=== PATIENT | female | born 2000 | race Caucasian/White ===

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

== ENCOUNTER 2022-04-28 09:50 | Emergency (ER) | payer OTHER ==
--- NOTE | 2022-04-28 09:52 | ERPHSYRPT ---
- History of Present Illness Time Seen by Provider: 04/28/22 09:52 Source: patient Exam Limitations: no limitations Physician History: This is a 22-year-old white female patient of Dr. Ahuja and web search evaluator Dr. Garcia and is 16 weeks and presents to the emergency department with sore throat, mild cough, headache and body aches. She has flulike symptoms. She has no known exposures to individuals with this similar symptoms or who have been diagnosed with viral infections. Patient does not have chest pain. She does not have shortness of breath. She does not have abdominal pain. She has had intermittent nausea and vomiting during the and this has continued but not worsened. She has no dysuria or hematuria. Timing/Duration: day(s) (A few days) Cough Quality/Degree: mild, dry cough Possible Cause: no prior episodes Modifying Factors: Improves With: coughing Associated Symptoms: cough, muscle aches, nasal congestion, sore throat, No fever, No chest pain/soreness, No shortness of breath Allergies/Adverse Reactions: amoxicillin Allergy (Mild, Verified 04/28/22 10:08) Swelling pt said she was told not to take anything that ends with -cillin Home Medications: Vits W-Ca,Fe,FA(<1Mg) [] 1 each PO DAILY 10/23/18 [History] Ondansetron [Ondansetron Odt] 1 tab PO Q6-8HPRN PRN 04/28/22 [History] Hx Tetanus, Diphtheria Vaccination/Date Given: (unk) Hx Influenza Vaccination/Date Given: No Hx Pneumococcal Vaccination/Date Given: No Travel Risk - International Travel Have you traveled outside of the country in past 3 weeks: No - Coronavirus Screening Are you exhibiting any of the following symptoms?: Yes Symptoms: Vomiting/Diarrhea, Headaches/Body Aches/Fatigue Close contact with a COVID-19 positive Pt in past 14-21 Days: No - Review of Systems Constitutional: No Symptoms Eyes: No Symptoms Ears, Nose, & Throat: Nose Congestion, Throat Pain Respiratory: Cough Cardiac: No Symptoms Abdominal/Gastrointestinal: Nausea, Vomiting, No Abdominal Pain, No Diarrhea, No Constipation, No Appetite Changes Genitourinary Symptoms: No Symptoms Musculoskeletal: Arthralgias, Myalgias Skin: No Symptoms Neurological: No Symptoms Psychological: No Symptoms Endocrine: No Symptoms Hematologic/Lymphatic: No Symptoms Immunological/Allergic: No Symptoms All Other Systems: Reviewed and Negative - Past Medical History Pertinent Past Medical History: No - Past Surgical History Past Surgical History: No - Social History Smoking Status: Never smoker Exposure to second hand smoke: No Drug Use: none Patient Lives Alone: No - Nursing Vital Signs Nursing Vital Signs: Initial Vital Signs Temperature 99.2 F 04/28/22 09:51 Pulse Rate 83 04/28/22 09:51 Respiratory Rate 17 04/28/22 09:51 Blood Pressure 135/84 04/28/22 09:51 O2 Sat by Pulse Oximetry 95 04/28/22 09:51 Pain Scale Pain Intensity 0 - Physical Exam General Appearance: no apparent distress, alert, anxiety Eye Exam: PERRL/EOMI, eyes nml inspection Ears, Nose, Throat Exam: normal ENT inspection, moist mucous membranes Neck Exam: normal inspection, non-tender, supple, full range of motion, No meningismus Respiratory Exam: normal breath sounds, lungs clear, airway intact, No chest tenderness, No respiratory distress Cardiovascular Exam: regular rate/rhythm, normal heart sounds, normal peripheral pulses Gastrointestinal/Abdomen Exam: soft, normal bowel sounds, other ( abdomen), No tenderness Rectal Exam: not done Back Exam: normal inspection, normal range of motion, CVA tenderness Extremity Exam: normal inspection, normal range of motion, pelvis stable Neurologic Exam: alert, oriented x 3, cooperative, reports developer II-XII nml as tested, nor mal mood/affect, nml cerebellar function, nml station & gait, sensation nml Skin Exam: normal color, warm, dry Lymphatic Exam: No adenopathy SpO2 Interpretation: normal O2 Delivery: Room Air - Course Nursing assessment & vital signs reviewed: Yes Ordered Tests: Active Orders 24 hr Category Date Time Status IV Insertion STAT Care 04/28/22 10:09 Active CBC W DIFF Stat Lab 04/28/22 10:22 Completed CMP Stat Lab 04/28/22 10:22 Completed CULTURE,URINE Stat Lab 04/28/22 10:25 Received Evans Screen Stat Lab 04/28/22 10:22 Completed UA W/RFX UR CULTURE Stat Lab 04/28/22 10:25 Completed Medication Summary Discontinued Medications Generic Name Dose Route Start Last Admin Trade Name Freq PRN Reason Stop Dose Admin Sodium Chloride 1,000 mls @ 999 mls/hr 04/28/22 10:09 04/28/22 11:34 Sodium Chloride 0.9% 1000 Ml IV 04/28/22 11:09 Infused .Q1H1M STA Infusion Sodium Chloride Confirm 04/28/22 10:31 Sodium Chloride 0.9% 1000 Ml Administered 04/28/22 10:32 Dose 1,000 mls @ ud .ROUTE .STK-MED ONE Ceftriaxone Sodium/Dextrose 1 g in 50 mls @ 100 mls/hr 04/28/22 10:58 04/28/22 11:43 Rocephin 1 Gm-D5w 50 Ml Bag IV 04/28/22 11:27 Infused STAT STA Infusion Ceftriaxone Sodium/Dextrose Confirm 04/28/22 11:10 Rocephin 1 Gm-D5w 50 Ml Bag Administered 04/28/22 11:11 Dose 1 g in 50 mls @ ud IV .STK-MED ONE Ondansetron HCl 4 mg 04/28/22 10:09 04/28/22 10:34 Ondansetron Hcl 4 Mg/2 Ml Vial IV 04/28/22 10:10 4 mg STAT ONE Administration Ondansetron HCl Confirm 04/28/22 10:31 Ondansetron Hcl 4 Mg/2 Ml Vial Administered 04/28/22 10:32 Dose 4 mg .ROUTE .STK-MED ONE Lab/Rad Data: Laboratory Result Diagrams 04/28/22 10:22 04/28/22 10:22 Laboratory Results 04/28/22 04/28/22 04/28/22 Range/Units 10:25 10:25 10:25 WBC (4.0-10.5) x10^3/uL RBC (4.1-5.4) x10^6/uL Hgb (12.0-16.0) g/dL Hct (35-47) % MCV (78-100) fL MCH (26-32) pg MCHC (32-36) g/dL RDW (11.5-14.0) % Plt Count (150-450) x10^3/uL MPV (7.5-11.0) fL Gran % (36.0-66.0) % Immature Gran % (Auto) (0.00-0.4) % Nucleat RBC Rel Count (0.00-0.1) % Eos # (Auto) (0-0.5) x10^3/uL Immature Gran # (Auto) (0.00-0.03) x10^3u/L Absolute Lymphs (auto) (1.0-4.6) x10^3/uL Absolute Monos (auto) (0.0-1.3) x10^3/uL Absolute Nucleated RBC (0.00-0.01) x10^3u/L Lymphocytes % (24.0-44.0) % Monocytes % (0.0-12.0) % Eosinophils % (0.00-5.0) % Basophils % (0.0-0.4) % Absolute Granulocytes (1.4-6.9) x10^3/uL Basophils # (0-0.4) x10^3/uL Sodium (137-145) mmol/L Potassium (3.5-5.1) mmol/L Chloride (98-107) mmol/L Carbon Dioxide (22-30) mmol/L Anion Gap (5-15) MEQ/L BUN (7-17) mg/dL Creatinine (0.52-1.04) mg/dL Estimated GFR ML/MIN Glucose (74-106) mg/dL Calcium (8.4-10.2) mg/dL Total Bilirubin (0.2-1.3) mg/dL AST (14-36) U/L ALT (0-35) U/L Alkaline Phosphatase (38-126) U/L Serum Total Protein (6.3-8.2) g/dL Albumin (3.5-5.0) g/dL Urine Color Yellow (Yellow) Urine Appearance Cloudy A (Clear) Urine pH 7.0 (4.6-8.0) Ur Specific [place] 1.025 (1.005-1.030) Urine Protein Trace A (Negative) Urine Glucose (UA) Negative (Negative) mg/dL Urine Ketones Trace A (Negative) Urine Blood Negative (Negative) Urine Nitrite Negative (Negative) Urine Bilirubin Negative (Negative) Urine Urobilinogen 1.0 A (0.2) mg/dL Ur Leukocyte Esterase Moderate A (Negative) U Hyaline Cast (Auto) 6-10 A (0-2) /LPF Urine Microscopic RBC 0-2 (0-5) /HPF Urine Microscopic WBC 11-20 A (0-5) /HPF Ur Epithelial Cells Moderate A (None Seen) /HPF Urine Bacteria Few A (None Seen) /HPF Urine Culture Reflexed YES (NO) Monoscreen (Negative) Influenza Type A Ag NEGATIVE (NEGATIVE) Influenza Type B Ag NEGATIVE (NEGATIVE) RSV (PCR) NEGATIVE (Negative) SARS-CoV-2 (PCR) NEGATIVE (NEGATIVE) Group A Strep Antibody NEGATIVE (NEGATIVE) 04/28/22 04/28/22 04/28/22 Range/Units 10:22 10:22 10:22 WBC 10.6 H (4.0-10.5) x10^3/uL RBC 4.08 L (4.1-5.4) x10^6/uL Hgb 12.9 (12.0-16.0) g/dL Hct 38.7 (35-47) % MCV 94.9 (78-100) fL MCH 31.6 (26-32) pg MCHC 33.3 (32-36) g/dL RDW 13.0 (11.5-14.0) % Plt Count 247 (150-450) x10^3/uL MPV 9.9 (7.5-11.0) fL Gran % 70.2 H (36.0-66.0) % Immature Gran % (Auto) 0.7 H (0.00-0.4) % Nucleat RBC Rel Count 0.0 (0.00-0.1) % Eos # (Auto) 0.25 (0-0.5) x10^3/uL Immature Gran # (Auto) 0.07 H (0.00-0.03) x10^3u/L Absolute Lymphs (auto) 2.25 (1.0-4.6) x10^3/uL Absolute Monos (auto) 0.52 (0.0-1.3) x10^3/uL Absolute Nucleated RBC 0.00 (0.00-0.01) x10^3u/L Lymphocytes % 21.3 L (24.0-44.0) % Monocytes % 4.9 (0.0-12.0) % Eosinophils % 2.4 (0.00-5.0) % Basophils % 0.5 (0.0-0.4) % Absolute Granulocytes 7.43 H (1.4-6.9) x10^3/uL Basophils # 0.05 (0-0.4) x10^3/uL Sodium 137 (137-145) mmol/L Potassium 4.0 (3.5-5.1) mmol/L Chloride 106 (98-107) mmol/L Carbon Dioxide 20 L (22-30) mmol/L Anion Gap 14.8 (5-15) MEQ/L BUN 7 (7-17) mg/dL Creatinine 0.43 L (0.52-1.04) mg/dL Estimated GFR > 60.0 ML/MIN Glucose 83 (74-106) mg/dL Calcium 9.1 (8.4-10.2) mg/dL Total Bilirubin 0.50 (0.2-1.3) mg/dL AST 23 (14-36) U/L ALT 15 (0-35) U/L Alkaline Phosphatase 78 (38-126) U/L Serum Total Protein 7.7 (6.3-8.2) g/dL Albumin 4.3 (3.5-5.0) g/dL Urine Color (Yellow) Urine Appearance (Clear) Urine pH (4.6-8.0) Ur Specific [place] (1.005-1.030) Urine Protein (Negative) Urine Glucose (UA) (Negative) mg/dL Urine Ketones (Negative) Urine Blood (Negative) Urine Nitrite (Negative) Urine Bilirubin (Negative) Urine Urobilinogen (0.2) mg/dL Ur Leukocyte Esterase (Negative) U Hyaline Cast (Auto) (0-2) /LPF Urine Microscopic RBC (0-5) /HPF Urine Microscopic WBC (0-5) /HPF Ur Epithelial Cells (None Seen) /HPF Urine Bacteria (None Seen) /HPF Urine Culture Reflexed (NO) Monoscreen NEGATIVE (Negative) Influenza Type A Ag (NEGATIVE) Influenza Type B Ag (NEGATIVE) RSV (PCR) (Negative) SARS-CoV-2 (PCR) (NEGATIVE) Group A Strep Antibody (NEGATIVE) - Progress Progress: improved Air Movement: good Progress Note: 04/28/22 11:44 This patient's medical issue is 1 of moderate complexity. The patient is pregn ant and is having vomiting symptoms as well as body aches and headache. The work-up was based on the above as well as history of present illness and physical findings on examination. The work-up includes placement IV line, infusion of normal saline solution, infusion of Zofran intravenously, obtain a urinalysis, performing a CBC, CMP as well as viral swabs. The work-up results were reviewed by me and discussed with the patient. The patient has a urinary tract infection. We will send a prescription of Keflex to her pharmacy. Patient tolerated Rocephin well. 04/28/22 11:49 Blood Culture(s) Obtained: No Antibiotics given: Yes Counseled pt/family regarding: lab results, diagnosis, need for follow-up Medical Desision Making - Discussion of managment Agreed on:: Treatment plan, need for follow-up - Diagnostic Testing Diagnostic test were ordered, analyzed, and reviewed by me: Yes - Risk of complications Low Risk: Low risk of morbidity from additional dx testing or treatment The pt has a mod risk of morbidity or mortality based on: Need for prescription drug management - Departure Departure Disposition: Home Clinical Impression: UTI in , Vomiting during Condition: Stable Critical Care Time: No Referrals: STACI AHUJA MD [Primary Care Provider] - Follow up/PCP as directed Additional Instructions: Drink plenty of clear liquids. Take your medication as prescribed. Follow-up with your web search evaluator and primary care provider for further evaluation management. Prescriptions: Cephalexin Mh 500 mg [Keflex 500 mg] 500 mg PO TID #21 cap
[2022-04-28] MEDS ORDERED: Zofran 4 MG/2 ML VIAL IV ONE (10:09)
[2022-04-28] MEDS ORDERED: Sodium Chloride 0.9% 1000 ML 1,000 ML IV STA (10:09)
[2022-04-28 10:29] LABS: Absolute Neutrophil Ct (ANC) 7.43 x10^3/uL (1.4-6.9); BASOPHIL % 0.5 % (0.0-0.4); Basophil (Absolute #) 0.05 x10^3/uL (0-0.4); Eosinophil % 2.4 % (0.00-5.0); Eosinophil (Absolute #) 0.25 x10^3/uL (0-0.5); Hematocrit 38.7 % (35-47); Hemoglobin 12.9 g/dL (12.0-16.0); IMMATURE GRAN # 0.07 x10^3u/L (0.00-0.03); IMMATURE GRAN % 0.7 % (0.00-0.4); Lymphocyte (Absolute #) 2.25 x10^3/uL (1.0-4.6); Lymphocytes % 21.3 % (24.0-44.0); Mean Cell Volume 94.9 fL (78-100); Mean Corpuscular Hemoglobin 31.6 pg (26-32); Mean Corpuscular Hgb Concent. 33.3 g/dL (32-36); Mean Platelet Volume 9.9 fL (7.5-11.0); Monocyte (Absolute #) 0.52 x10^3/uL (0.0-1.3); Monocytes % 4.9 % (0.0-12.0); Neutrophil % 70.2 % (36.0-66.0); Platelet Count 247 x10^3/uL (150-450); Red Blood Count 4.08 x10^6/uL (4.1-5.4); White Blood Count 10.6 x10^3/uL (4.0-10.5)
[2022-04-28] MEDS ORDERED: Sodium Chloride 0.9% 1000 ML 1,000 ML ONE (10:31)
[2022-04-28] MEDS ORDERED: Zofran 4 MG/2 ML VIAL ONE (10:31)
[2022-04-28 10:42] LABS: ALBUMIN 4.3 g/dL (3.5-5.0); ALKALINE PHOSPHATASE 78 U/L (38-126); ANION GAP 14.8 MEQ/L (5-15); BLOOD UREA NITROGEN 7 mg/dL (7-17); CHLORIDE 106 mmol/L (98-107); Calcium 9.1 mg/dL (8.4-10.2); Carbon Dioxide 20 mmol/L (22-30); Creatinine 1 0.43 mg/dL (0.52-1.04); EST GLOMERULAR FILTRATION RATE > 60.0 ML/MIN; Glucose 83 mg/dL (74-106); SGOT/AST 23 U/L (14-36); SGPT/ALT 15 U/L (0-35); SODIUM 137 mmol/L (137-145); Total Protein 7.7 g/dL (6.3-8.2)
[2022-04-28 10:45] LABS: Appearance Cloudy (Clear); Bacteria Few /HPF (None Seen); Bilirubin Negative (Negative); Blood Negative (Negative); Epithelial Cells Moderate /HPF (None Seen); Glucose, Urine Negative (Negative); Ketones Trace (Negative); Leukocyte Esterase Moderate (Negative); Nitrite Negative (Negative); Protein,Urine Dip Trace (Negative); RBC 0-2 /HPF (0-5); Specific Gravity 1.025 (1.005-1.030)
[2022-04-28 10:57] LABS: ADD URINE CULTURE? YES (NO)
[2022-04-28] MEDS ORDERED: ROCEPHIN 1 Gm-D5w 50 ml Bag** 1 G/50 ML IVPB IV STA (10:58)
[2022-04-28] MEDS ORDERED: ROCEPHIN 1 Gm-D5w 50 ml Bag** 1 G/50 ML IVPB IV ONE (11:10)
[2022-04-28 11:22] LABS: INFLUENZA A NEGATIVE (NEGATIVE); INFLUENZA B NEGATIVE (NEGATIVE); RESPIRATORY SYNCTIAL VIRUS NEGATIVE (Negative); SARS-CoV-2 Xpert Express NEGATIVE (NEGATIVE)
[2022-04-28 12:26] VITALS: BP 111/77; PULSE 84; O2SAT 98
== END 2022-04-28 12:26 | disposition home or self-care (01) ==
LOC: ED 09:50
DX: O23.42 Unspecified infection of urinary tract in pregnancy, second trimester (principal); N39.0 Urinary tract infection, site not specified; Z3A.16 16 weeks gestation of pregnancy; O21.9 Vomiting of pregnancy, unspecified; J02.9 Acute pharyngitis, unspecified; R51.9 Headache, unspecified; M79.10 Myalgia, unspecified site
CPT/HCPCS: 0241U; 36000; 36415; 80053; 81001; 85025; 86308; 87086; 87651; 96365; 96374; 99284; J0696; J2405

== ENCOUNTER 2023-08-28 11:05 | Observation (INO) | payer OTHER, MEDICAID ==
--- NOTE | 2023-08-28 11:23 | ERPHSYRPT ---
- History of Present Illness Time Seen by Provider: 08/28/23 11:23 Source: patient Exam Limitations: no limitations Patient Subjective Stated Complaint: pt here for cough, fever, vomiting and chest pain for a few days, was seen at clinic and is on meds for ear infection Triage Nursing Assessment: pt alert, walked in holding chest, resp easy, occ dry cough, skin w/d/p, no edema noted,moves all ext well, Physician History: The patient, with a five-day history of fever, nausea, and cough, presents to the emergency department. They initially sought care at a [facility] clinic on the third day of illness due to ear discomfort, where they were diagnosed with a viral infection and prescribed antiviral medication. However, they have been unable to tolerate the medication due to severe stomach pain and vomiting after ingestion. Despite rotating Tylenol and ibuprofen every two hours, they have been unable to reduce their fever below 100.5F. The patient's symptoms began with a severe migraine on Thursday night, followed by the onset of fever and nausea the next morning. They also report new-onset chest pain when breathing, which they attribute to congestion and coughing. They have also been experiencing shortness of breath. Timing/Duration: day(s) (5) Cough Quality/Degree: moderate, productive cough Possible Cause: no prior episodes Modifying Factors: Worsens With: activity, coughing, deep breath Associated Symptoms: fever, chills, chest pain/soreness, cough, earache, headache, muscle aches, nasal congestion, shortness of breath, wheezing Allergies/Adverse Reactions: amoxicillin Allergy (Mild, Verified 08/28/23 15:38) Swelling pt said she was told not to take anything that ends with -cillin Hx Tetanus, Diphtheria Vaccination/Date Given: (unk) Hx Influenza Vaccination/Date Given: No Hx Pneumococcal Vaccination/Date Given: No Immunizations Up to Date: Yes Travel Risk - International Travel Have you traveled outside of the country in past 3 weeks: No - Emerging Infectious Disease Are you exhibiting symptoms associated with any current EIDs: Yes Symptoms: Fever, Vomitting - Review of Systems All Other Systems: Reviewed and Negative - Past Medical History Pertinent Past Medical History: No - Past Surgical History Past Surgical History: No - Female History Hx Last Menstrual Period: 2 weeks ago Hx Now: No - Social History Smoking Status: Never smoker Exposure to second hand smoke: No Drug Use: none Patient Lives Alone: No - Social Determinants of Health Will the patient participate in the screening: Declined to provide - Nursing Vital Signs Nursing Vital Signs: Initial Vital Signs Respiratory Rate 22 08/28/23 11:14 O2 Sat by Pulse Oximetry 98 08/28/23 11:14 Pain Scale Pain Intensity 4 - Physical Exam General Appearance: no apparent distress, obese Eye Exam: eyes nml inspection Ears, Nose, Throat Exam: TMs normal, moist mucous membranes, pharyngeal erythema, No tonsillar exudate Neck Exam: normal inspection, non-tender, supple, full range of motion, lymphadenopathy Respiratory Exam: airway intact, diminished breath sounds, rhonchi, No chest tenderness, No respiratory distress, No accessory muscle use Cardiovascular Exam: normal heart sounds, tachycardia, capillary refill <2 sec, No friction rub, No edema Gastrointestinal/Abdomen Exam: soft, No tenderness, No distention, No mass, No guarding, No rebound Neurologic Exam: alert, oriented x 3, cooperative Skin Exam: warm, dry, pale SpO2 Interpretation: normal SpO2: 98 O2 Delivery: Room Air - Course Nursing assessment & vital signs reviewed: Yes EKG Interpreted by Me: RATE ([id number]), NORMAL AXIS, NORMAL INTERVALS, NORMAL QRS, NORMAL ST-T - CT Exams Chest CT Interpretation: Tele-radiologist Report, No PE, Pneumonia (bilateral) Ordered Tests: Medication Summary Discontinued Medications Generic Name Dose Route Start Last Admin Trade Name Freq PRN Reason Stop Dose Admin Acetaminophen 650 mg 08/28/23 16:02 Acetaminophen 325 Mg Tablet PO 09/27/23 16:01 Q6H PRN PRN PAIN AND/OR FEVER Hydrocodone Bitart/Acetaminophen Confirm 08/28/23 11:40 Hydrocodone/Acetaminophen 5 Ml Udcup Administered 08/28/23 11:41 Dose 5 ml .ROUTE .STK-MED ONE Albuterol/Ipratropium 3 ml 08/28/23 11:29 08/28/23 12:19 Ipratropium/Albuterol Sulfate 3 Ml Ampul.Neb IH 08/28/23 11:30 3 ml STAT ONE Administration Albuterol/Ipratropium Confirm 08/28/23 12:15 Ipratropium/Albuterol Sulfate 3 Ml Ampul.Neb Administered 08/28/23 12:16 Dose 3 ml IH .STK-MED ONE Albuterol/Ipratropium 3 ml 08/28/23 19:00 08/29/23 07:45 Ipratropium/Albuterol Sulfate 3 Ml Ampul.Neb IH 09/27/23 18:59 Not Given Q6HRT MARY Benzonatate 100 mg 08/28/23 16:29 08/29/23 07:22 Benzonatate 100 Mg Capsule PO 09/27/23 16:28 100 mg TID PRN PRN Administration COUGH Chlorphenir/Hydrocodone Polistirex 5 ml 08/28/23 11:35 08/28/23 12:16 Hydrocodone/Chlorphen P-Stirex 1 Ml Bonnie.Er.12h PO 08/28/23 11:36 5 ml ONCE ONE Administration Methylprednisolone Sodium 0 mg 08/28/23 11:29 08/28/23 11:53 Succinate 125 mg/ Sterile IV 08/28/23 11:30 125 mg Water 2 ml STAT ONE Administration Enoxaparin Sodium 40 mg 08/29/23 10:00 08/29/23 08:40 Enoxaparin Sodium 40 Mg/0.4 Ml Syringe SQ 09/28/23 09:59 Not Given DAILY MARY Sodium Chloride 1,000 mls @ 999 mls/hr 08/28/23 11:29 08/28/23 12:53 Sodium Chloride 0.9% 1000 Ml IV 08/28/23 12:29 Infused .Q1H1M STA Infusion Azithromycin 500 mg in 250 mls @ 250 mls/hr 08/28/23 11:29 08/28/23 13:19 Zithromax 500 Mg/ 250 Ml Nacl Premix IV 08/28/23 12:28 Infused STAT STA Infusion Ceftriaxone Sodium 2 gm in 100 mls @ 200 mls/hr 08/28/23 11:29 08/28/23 12:23 Rocephin 2 Gm/100 Ml Nacl IV 08/28/23 11:58 Infused STAT ONE Infusion Sodium Chloride Confirm 08/28/23 11:40 Sodium Chloride 0.9% 1000 Ml Administered 08/28/23 11:41 Dose 1,000 mls @ ud .ROUTE .STK-MED ONE Ceftriaxone Sodium Confirm 08/28/23 11:41 Rocephin 2 Gm/100 Ml Nacl Administered 08/28/23 11:42 Dose 2 gm in 100 mls @ ud IV .STK-MED ONE Ceftriaxone Sodium Confirm 08/28/23 11:46 Rocephin 2 Gm/100 Ml Nacl Administered 08/28/23 11:47 Dose 2 gm in 100 mls @ ud IV .STK-MED ONE Azithromycin Confirm 08/28/23 12:12 Zithromax 500 Mg/ 250 Ml Nacl Premix Administered 08/28/23 12:13 Dose 500 mg in 250 mls @ ud IV .STK-MED ONE Sodium Chloride 1,000 mls @ 999 mls/hr 08/28/23 13:45 08/28/23 14:15 Sodium Chloride 0.9% 1000 Ml IV 08/28/23 14:45 999 mls/hr .Q1H1M STA Administration Sodium Chloride Confirm 08/28/23 14:13 Sodium Chloride 0.9% 1000 Ml Administered 08/28/23 14:14 Dose 1,000 mls @ ud .ROUTE .STK-MED ONE Ceftriaxone Sodium 1 gm in 100 mls @ 200 mls/hr 08/29/23 10:00 08/29/23 08:37 Rocephin 1 Gm / 100 Ml Nacl IV 09/28/23 09:59 200 mls/hr DAILY MARY Administration Azithromycin 500 mg in 250 mls @ 250 mls/hr 08/29/23 10:00 08/29/23 09:16 Zithromax 500 Mg/ 250 Ml Nacl Premix IV 09/28/23 09:59 250 mls/hr Q24H10 MARY Administration Sodium Chloride 1,000 mls @ 100 mls/hr 08/28/23 16:15 08/29/23 03:43 Sodium Chloride 0.9% 1000 Ml IV 09/27/23 16:14 100 mls/hr .Q10H MARY Administration Sodium Chloride 1,000 mls @ 999 mls/hr 08/28/23 16:06 08/28/23 16:41 Sodium Chloride 0.9% 1000 Ml IV 08/28/23 17:06 999 mls/hr .Q1H1M STA Administration Methylprednisolone Sodium Succinate Confirm 08/28/23 11:40 Methylprednis Sod Succ 125 Mg/2 Ml Vial Administered 08/28/23 11:41 Dose 125 mg .ROUTE .STK-MED ONE Ondansetron HCl 4 mg 08/28/23 12:31 08/28/23 12:34 Ondansetron Hcl 4 Mg/2 Ml Vial IV 08/28/23 12:32 4 mg STAT ONE Administration Ondansetron HCl Confirm 08/28/23 12:32 Ondansetron Hcl 4 Mg/2 Ml Vial Administered 08/28/23 12:33 Dose 4 mg .ROUTE .STK-MED ONE Prochlorperazine Edisylate 10 mg 08/28/23 16:05 Prochlorperazine Edisylate 10 Mg/2 Ml Vial IV 09/27/23 16:04 Q6H PRN PRN NAUSEA/VOMITING Sterile Water Confirm 08/28/23 11:40 Water For Injection,Sterile 10 Ml Vial Administered 08/28/23 11:41 Dose 10 ml IJ .StraighterLine-[employer]-IT ONE Lab/Rad Data: Laboratory Result Diagrams 08/28/23 11:29 08/28/23 11:08 Laboratory Results 08/28/23 08/28/23 08/28/23 Range/Units 15:02 12:35 12:35 WBC (3.98-10.04) x10^3/uL RBC (3.93-5.22) x10^6/uL Hgb (11.2-15.7) g/dL Hct (34.1-44.9) % MCV (79.4-94.8) fL MCH (25.6-32.2) pg MCHC (32.2-35.5) g/dL RDW (11.7-14.4) % Plt Count (182-369) x10^3/uL MPV (9.4-12.3) fL Gran % (34.0-71.1) % Immature Gran % (Auto) (0.001-0.429) % Nucleat RBC Rel Count (0.00-0.2) % Eos # (Auto) (0.04-0.36) x10^3/uL Immature Gran # (Auto) (0.001-0.031) x10^3u/L Absolute Lymphs (auto) (1.18-3.74) x10^3/uL Absolute Monos (auto) (0.24-0.86) x10^3/uL Absolute Nucleated RBC (0.00-0.012) x10^3u/L Lymphocytes % (19.3-51.7) % Monocytes % (4.7-12.5) % Eosinophils % (0.7-5.8) % Basophils % (0.1-1.2) % Absolute Granulocytes (1.56-6.13) x10^3/uL Basophils # (0.01-0.08) x10^3/uL D-Dimer (0.0-0.50) mg/L pO2/FiO2 Ratio 21.0 % VBG pH 7.54 H (7.32-7.42) VBG pCO2 at Pat Temp 30 L (42-55) mm/Hg VBG pO2 at Pat Temp 27 (25-40) mm/Hg VBG HCO3 25.7 (22-28) meq/L VBG O2 Sat (Mckenzie) 54.3 L (95-100) VBG Base Excess 3.9 H (-2.0-2.0) VBG Hemoglobin 14.8 VBG Carboxyhemoglobin 4.3 (0.0-6.9) % T HGB POC Potassium 4.3 (3.5-5.1) Sodium (135-145) mmol/L Potassium (3.5-5.1) mmol/L Chloride (98-107) mmol/L Carbon Dioxide (22-30) mmol/L Anion Gap (5-15) MEQ/L BUN (7-17) mg/dL Creatinine (0.52-1.04) mg/dL Estimated GFR ML/MIN Glucose (74-106) mg/dL Lactic Acid 1.8 (0.4-2.0) Calcium (8.4-10.2) mg/dL Magnesium (1.6-2.3) mg/dL Total Bilirubin (0.2-1.3) mg/dL AST (14-36) U/L ALT (0-35) U/L Alkaline Phosphatase (38-126) U/L Serum Total Protein (6.3-8.2) g/dL Albumin (3.5-5.0) g/dL Serum HCG, Qual (NEGATIVE) Urine Color Yellow (Yellow) Urine Appearance Clear (Clear) Urine pH 7.5 (4.6-8.0) Ur Specific [place] 1.025 (1.005-1.030) Urine Protein 30 (Negative) Urine Glucose (UA) Negative (Negative) mg/dL Urine Ketones 40 A (Negative) Urine Blood Negative (Negative) Urine Nitrite Negative (Negative) Urine Bilirubin Negative (Negative) Urine Urobilinogen 1.0 A (0.2) mg/dL Ur Leukocyte Esterase Small A (Negative) U Hyaline Cast (Auto) NONE SEEN (0-2) /LPF Urine Microscopic RBC 3-5 (0-5) /HPF Urine Microscopic WBC 6-10 A (0-5) /HPF Ur Epithelial Cells Moderate A (None Seen) /HPF Urine Bacteria None Seen (None Seen) /HPF Urine Culture Reflexed YES (NO) Influenza Type A Ag (NEGATIVE) Influenza Type B Ag (NEGATIVE) RSV (PCR) (NEGATIVE) SARS-CoV-2 (PCR) (NEGATIVE) 08/28/23 08/28/23 08/28/23 Range/Units 11:45 11:29 11:08 WBC 7.4 (3.98-10.04) x10^3/uL RBC 4.64 (3.93-5.22) x10^6/uL Hgb 14.1 (11.2-15.7) g/dL Hct 42.0 (34.1-44.9) % MCV 90.5 (79.4-94.8) fL MCH 30.4 (25.6-32.2) pg MCHC 33.6 (32.2-35.5) g/dL RDW 12.6 (11.7-14.4) % Plt Count 224 (182-369) x10^3/uL MPV 10.0 (9.4-12.3) fL Gran % 69.5 (34.0-71.1) % Immature Gran % (Auto) 0.3 (0.001-0.429) % Nucleat RBC Rel Count 0.0 (0.00-0.2) % Eos # (Auto) 0.11 (0.04-0.36) x10^3/uL Immature Gran # (Auto) 0.02 (0.001-0.031) x10^3u/L Absolute Lymphs (auto) 1.55 (1.18-3.74) x10^3/uL Absolute Monos (auto) 0.54 (0.24-0.86) x10^3/uL Absolute Nucleated RBC 0.00 (0.00-0.012) x10^3u/L Lymphocytes % 21.0 (19.3-51.7) % Monocytes % 7.3 (4.7-12.5) % Eosinophils % 1.5 (0.7-5.8) % Basophils % 0.4 (0.1-1.2) % Absolute Granulocytes 5.13 (1.56-6.13) x10^3/uL Basophils # 0.03 (0.01-0.08) x10^3/uL D-Dimer (0.0-0.50) mg/L pO2/FiO2 Ratio % VBG pH (7.32-7.42) VBG pCO2 at Pat Temp (42-55) mm/Hg VBG pO2 at Pat Temp (25-40) mm/Hg VBG HCO3 (22-28) meq/L VBG O2 Sat (Mckenzie) (95-100) VBG Base Excess (-2.0-2.0) VBG Hemoglobin VBG Carboxyhemoglobin (0.0-6.9) % T HGB POC Potassium (3.5-5.1) Sodium (135-145) mmol/L Potassium (3.5-5.1) mmol/L Chloride (98-107) mmol/L Carbon Dioxide (22-30) mmol/L Anion Gap (5-15) MEQ/L BUN (7-17) mg/dL Creatinine (0.52-1.04) mg/dL Estimated GFR ML/MIN Glucose (74-106) mg/dL Lactic Acid (0.4-2.0) Calcium (8.4-10.2) mg/dL Magnesium (1.6-2.3) mg/dL Total Bilirubin (0.2-1.3) mg/dL AST (14-36) U/L ALT (0-35) U/L Alkaline Phosphatase (38-126) U/L Serum Total Protein (6.3-8.2) g/dL Albumin (3.5-5.0) g/dL Serum HCG, Qual NEGATIVE (NEGATIVE) Urine Color (Yellow) Urine Appearance (Clear) Urine pH (4.6-8.0) Ur Specific [place] (1.005-1.030) Urine Protein (Negative) Urine Glucose (UA) (Negative) mg/dL Urine Ketones (Negative) Urine Blood (Negative) Urine Nitrite (Negative) Urine Bilirubin (Negative) Urine Urobilinogen (0.2) mg/dL Ur Leukocyte Esterase (Negative) U Hyaline Cast (Auto) (0-2) /LPF Urine Microscopic RBC (0-5) /HPF Urine Microscopic WBC (0-5) /HPF Ur Epithelial Cells (None Seen) /HPF Urine Bacteria (None Seen) /HPF Urine Culture Reflexed (NO) Influenza Type A Ag NEGATIVE (NEGATIVE) Influenza Type B Ag NEGATIVE (NEGATIVE) RSV (PCR) NEGATIVE (NEGATIVE) SARS-CoV-2 (PCR) NEGATIVE (NEGATIVE) 08/28/23 08/28/23 Range/Units 11:08 11:08 WBC (3.98-10.04) x10^3/uL RBC (3.93-5.22) x10^6/uL Hgb (11.2-15.7) g/dL Hct (34.1-44.9) % MCV (79.4-94.8) fL MCH (25.6-32.2) pg MCHC (32.2-35.5) g/dL RDW (11.7-14.4) % Plt Count (182-369) x10^3/uL MPV (9.4-12.3) fL Gran % (34.0-71.1) % Immature Gran % (Auto) (0.001-0.429) % Nucleat RBC Rel Count (0.00-0.2) % Eos # (Auto) (0.04-0.36) x10^3/uL Immature Gran # (Auto) (0.001-0.031) x10^3u/L Absolute Lymphs (auto) (1.18-3.74) x10^3/uL Absolute Monos (auto) (0.24-0.86) x10^3/uL Absolute Nucleated RBC (0.00-0.012) x10^3u/L Lymphocytes % (19.3-51.7) % Monocytes % (4.7-12.5) % Eosinophils % (0.7-5.8) % Basophils % (0.1-1.2) % Absolute Granulocytes (1.56-6.13) x10^3/uL Basophils # (0.01-0.08) x10^3/uL D-Dimer 0.83 H* (0.0-0.50) mg/L pO2/FiO2 Ratio % VBG pH (7.32-7.42) VBG pCO2 at Pat Temp (42-55) mm/Hg VBG pO2 at Pat Temp (25-40) mm/Hg VBG HCO3 (22-28) meq/L VBG O2 Sat (Mckenzie) (95-100) VBG Base Excess (-2.0-2.0) VBG Hemoglobin VBG Carboxyhemoglobin (0.0-6.9) % T HGB POC Potassium (3.5-5.1) Sodium 140 (135-145) mmol/L Potassium 3.9 (3.5-5.1) mmol/L Chloride 104 (98-107) mmol/L Carbon Dioxide 22 (22-30) mmol/L Anion Gap 17.5 H (5-15) MEQ/L BUN 12 (7-17) mg/dL Creatinine 0.90 (0.52-1.04) mg/dL Estimated GFR 91.6 ML/MIN Glucose 97 (74-106) mg/dL Lactic Acid (0.4-2.0) Calcium 9.7 (8.4-10.2) mg/dL Magnesium 2.1 (1.6-2.3) mg/dL Total Bilirubin 0.70 (0.2-1.3) mg/dL AST 28 (14-36) U/L ALT 20 (0-35) U/L Alkaline Phosphatase 66 (38-126) U/L Serum Total Protein 8.2 (6.3-8.2) g/dL Albumin 4.6 (3.5-5.0) g/dL Serum HCG, Qual (NEGATIVE) Urine Color (Yellow) Urine Appearance (Clear) Urine pH (4.6-8.0) Ur Specific [place] (1.005-1.030) Urine Protein (Negative) Urine Glucose (UA) (Negative) mg/dL Urine Ketones (Negative) Urine Blood (Negative) Urine Nitrite (Negative) Urine Bilirubin (Negative) Urine Urobilinogen (0.2) mg/dL Ur Leukocyte Esterase (Negative) U Hyaline Cast (Auto) (0-2) /LPF Urine Microscopic RBC (0-5) /HPF Urine Microscopic WBC (0-5) /HPF Ur Epithelial Cells (None Seen) /HPF Urine Bacteria (None Seen) /HPF Urine Culture Reflexed (NO) Influenza Type A Ag (NEGATIVE) Influenza Type B Ag (NEGATIVE) RSV (PCR) (NEGATIVE) SARS-CoV-2 (PCR) (NEGATIVE) - Progress Progress: improved Air Movement: fair Progress Note: Acute Respiratory Illness: Fever, nausea, cough, and chest pain for 5 days. No improvement with antiviral medication. Chest pain likely due to coughing. Shortness of breath reported. Tachycardia present. -Order chest x-ray and lab work. -Administer IV antibiotics. -Administer steroids. -Start breathing treatment. -Change oral antibiotic prescription. -Monitor heart rate. Gastrointestinal Distress: Vomiting and abdominal pain after taking antiviral medication. -Discontinue current antiviral medication. -Administer IV medication to control symptoms. Cough: Persistent cough without any medication provided previously. -Provide cough suppressant medication. 08/28/23 14:46 Shira accepts for admission at 1446. Blood Culture(s) Obtained: Yes Antibiotics given: Yes Counseled pt/family regarding: lab results, diagnosis, need for follow-up, rad results Medical Desision Making - Discussion of managment Care discussed with:: hospitalist Reviewed:: Test results Agreed on:: Treatment plan, place in obs Will see patient: in hospital - Diagnostic Testing Diagnostic test were ordered, analyzed, and reviewed by me: Yes Radiological Interpretation: Interpreted by me, Reviewed by me, Teleradiologist Report - Risk of complications The pt has a mod risk of morbidity or mortality based on: Need for prescription drug management The pt has a high risk of morbidity or mortality based on: Decision regarding hospitilization or escalation of hosp level of care - Departure Departure Disposition: Observation Clinical Impression: Pneumonia, Dehydration Condition: Stable Critical Care Time: No
[2023-08-28] MEDS ORDERED: HYDROCODONE-ACETAMIN 2.5-108/5 ML SOLUTION ONE (11:40)
[2023-08-28] MEDS ORDERED: Sodium Chloride 0.9% 1000 ML 1,000 ML ONE ×2 (11:40→14:13)
[2023-08-28] MEDS ORDERED: Sterile H2O 10 ml IJ ONE (11:40)
[2023-08-28] MEDS ORDERED: solu-MEDROL ONE (11:40)
[2023-08-28] MEDS ORDERED: ROCEPHIN 2 GM/100 ML NACL 2 GM/100 ML IVPB IV ONE ×2 (11:41→11:46)
[2023-08-28] MEDS: Sodium Chloride 0.9% 1000 ML 1,000 ML IV STA ×3 (11:52→16:41)
[2023-08-28] MEDS: solu-MEDROL 125 MG, Sterile H2O 10 ml 2 ML IV ONE (11:53)
[2023-08-28] MEDS: ROCEPHIN 2 GM/100 ML NACL 2 GM/100 ML IVPB IV ONE (11:53)
[2023-08-28 11:54] LABS: Absolute Neutrophil Ct (ANC) 5.13 x10^3/uL (1.56-6.13); BASOPHIL % 0.4 % (0.1-1.2); Basophil (Absolute #) 0.03 x10^3/uL (0.01-0.08); Eosinophil % 1.5 % (0.7-5.8); Eosinophil (Absolute #) 0.11 x10^3/uL (0.04-0.36); Hemoglobin 14.1 g/dL (11.2-15.7); IMMATURE GRAN # 0.02 x10^3u/L (0.001-0.031); IMMATURE GRAN % 0.3 % (0.001-0.429); Lymphocyte (Absolute #) 1.55 x10^3/uL (1.18-3.74); Mean Cell Volume 90.5 fL (79.4-94.8); Mean Corpuscular Hemoglobin 30.4 pg (25.6-32.2); Mean Corpuscular Hgb Concent. 33.6 g/dL (32.2-35.5); Monocyte (Absolute #) 0.54 x10^3/uL (0.24-0.86); Monocytes % 7.3 % (4.7-12.5); Neutrophil % 69.5 % (34.0-71.1); Platelet Count 224 x10^3/uL (182-369); Red Blood Count 4.64 x10^6/uL (3.93-5.22); Red Cell Distribution Width 12.6 % (11.7-14.4); White Blood Count 7.4 x10^3/uL (3.98-10.04)
[2023-08-28 12:07] LABS: ALBUMIN 4.6 g/dL (3.5-5.0); ANION GAP 17.5 MEQ/L (5-15); BILIRUBIN,TOTAL 0.7 mg/dL (0.2-1.3); Calcium 9.7 mg/dL (8.4-10.2); Creatinine 1 0.9 mg/dL (0.52-1.04); EST GLOMERULAR FILTRATION RATE 91.6 ML/MIN; MAGNESIUM 2.1 mg/dL (1.6-2.3); Potassium 3.9 mmol/L (3.5-5.1); Total Protein 8.2 g/dL (6.3-8.2)
[2023-08-28 12:09] LABS: HCG SERUM TEST NEGATIVE (NEGATIVE)
[2023-08-28] MEDS ORDERED: Zithromax 500 MG/ 250 ML NaCl Premix 500 MG/250 ML IVPB IV ONE (12:12)
[2023-08-28] MEDS ORDERED: DUONEB 0.5-3 MG/3 ml Neb IH ONE (12:15)
[2023-08-28] MEDS: HYDROCODONE-CHLORPHEN ER SUSP PO ONE (12:16)
[2023-08-28] MEDS: DUONEB 0.5-3 MG/3 ml Neb IH ONE (12:19)
[2023-08-28] MEDS: Zithromax 500 MG/ 250 ML NaCl Premix 500 MG/250 ML IVPB IV STA (12:19)
[2023-08-28] MEDS ORDERED: Zofran 4 MG/2 ML VIAL ONE (12:32)
[2023-08-28] MEDS: Zofran 4 MG/2 ML VIAL IV ONE (12:34)
[2023-08-28 12:38] LABS: VBG BASE EXCESS 3.9 (-2.0-2.0); VBG CARBOXYHEMOGLOBIN 4.3 % T HGB (0.0-6.9); VBG HCO3- 25.7 meq/L (22-28); VBG HEMOGLOBIN 14.8; VBG O2 SATURATION 54.3 (95-100); VBG POTASSIUM 4.3 (3.5-5.1); VBG pH 7.54 (7.32-7.42)
[2023-08-28 12:59] LABS: INFLUENZA A NEGATIVE (NEGATIVE); INFLUENZA B NEGATIVE (NEGATIVE); RESPIRATORY SYNCTIAL VIRUS NEGATIVE (NEGATIVE); SARS-CoV-2 Xpert Express NEGATIVE (NEGATIVE)
--- NOTE | 2023-08-28 14:33 | XRAY ---
CLINICAL HISTORY: chest pain, sob COMPARISON: None. TECHNIQUE: Axial CTA images of the chest with intravenous contrast using a pulmonary embolism protocol was performed. Coronal and Sagittal reconstructed images were also obtained. One of these 3D techniques was utilized: Maximum Intensity Pixel (MIP), 3D Reconstructed Images, Volume Rendered Images, Surface Shaded Rendering. One of the following dose reduction techniques was utilized for this exam: automated exposure control, adjustment of the mA and/or kV according to patient size, use of iterative reconstruction FINDINGS: Limited views of the pulmonary arteries as the imaging acquisition was performed at later times, in systemic arterial time. No evidence of central or segmental pulmonary embolism is seen. There is no evidence of aneurysm or dissection of the thoracic aorta. Bilateral patchy areas of parenchymal infiltrates, mainly in the left upper lobe, and to a lesser degree in the right lower lobe. No pleural or pericardial effusion IMPRESSION: 1. Limited views of the pulmonary arteries as the imaging acquisition was performed at later times, in systemic arterial time. 2. Negative study for pulmonary embolism in the above-mentioned conditions. 3. Bilateral infiltrates, mainly in the left upper lobe, and to a lesser degree in the right lower lobe. 4. Correlate clinically. Follow-up is recommended. Electronically Signed by: Benny Santiago MD. (08/28/2023 14:30:33 EDT)
[2023-08-28 15:15] LABS: Appearance Clear (Clear); Bacteria None Seen /HPF (None Seen); Bilirubin Negative (Negative); Blood Negative (Negative); Epithelial Cells Moderate /HPF (None Seen); Glucose, Urine Negative (Negative); Hyaline Casts NONE SEEN /LPF (0-2); Ketones 40 (Negative); Leukocyte Esterase Small (Negative); Nitrite Negative (Negative); Ph 7.5 (4.6-8.0); Protein,Urine Dip 30 (Negative); Specific Gravity 1.025 (1.005-1.030)
[2023-08-28 15:22] LABS: ADD URINE CULTURE? YES (NO)
[2023-08-28] MEDS ORDERED: TYLENOL 325 MG PO PRN (16:02)
[2023-08-28] MEDS ORDERED: Compazine 10 MG/2 ML IV PRN (16:05)
--- NOTE | 2023-08-28 16:07 | PCM.HP ---
History of Present Illness - Chief Complaint Chief Complaint: Pneumonia Date: 08/28/23 History of Present Illness: is a 23 year old female with no known medical hx. She states she was recenlty in [facility] and it was rather cold with temps in the 50's. She thinks this is how she got sick. She had had a fever for 3 days now and not feeling well with cough and SOB. CT shows pneumonia and she is septic with elevated HR and temp. Lactic acid WNL. She was started on IV antibiotics, breathing treatments, and cough medication in the ER. Will continue this plan of care. She received 2 liters of NS fluid blouses as well. She will need 1 more fluid bolus and continued IV fluids. COVID/Flu/ RSA is negative. She has 3 small children at home and would like to get home as soon as she can. She denies any further concerns at this time. - Review of Systems Constitutional: Fever, Fatigue, No Chills Eyes: No Symptoms Ears, Nose, & Throat: No Symptoms Respiratory: Cough (with yellow production) Cardiac: Chest Pain (with inspiration), No Edema, No Syncope Abdominal/Gastrointestinal: No Abdominal Pain, No Nausea, No Vomiting, No Diarrhea Genitourinary Symptoms: No Dysuria Musculoskeletal: No Back Pain, No Neck Pain Skin: No Rash Neurological: No Dizziness, No Focal Weakness, No Sensory Changes Psychological: No Symptoms Endocrine: No Symptoms Hematologic/Lymphatic: No Symptoms Immunological/Allergic: No Symptoms Medications & Allergies Home Medications: Home Medication List Cefdinir 300 mg PO DAILY 08/28/23 [History Confirmed 08/28/23] Allergies/Adverse Reactions: Allergies Allergy/AdvReac Type Severity Reaction Status Date / Time amoxicillin Allergy Mild Swelling Verified 08/28/23 15:38 - Past Medical History Past Medical History: No Neurological History: No Pertinent History ENT History: No Pertinent History Cardiac History: No Pertinent History Respiratory History: No Pertinent History Endocrine Medical History: No Pertinent History Musculoskelatal History: No Pertinent History GI Medical History: No Pertinent History History: No Pertinent History Pyscho-Social History: No Pertinent History Reproductive Disorders: No Pertinent History - Female History Hx Last Menstrual Period: August 13 Are you now?: No - Past Surgical History Past Surgical History: No - Social History Smoking Status: Never smoker Exposure to second hand smoke: No Alcohol: Rarely Drug Use: none - Social Determinants of Health Will the patient participate in the screening: Yes Do you worry about a steady place to live?: No Do you have any problems with any of the following?: No known problems In the past 12 months,have you had to go without utilities?: No Have you or anyone in your house had to go without enough: No Transportation Issues: No Has anyone in your support network made you feel unsafe?: No Does the patient want assistance with any of the above?: No - Physical Exam Vital Signs: Vital Signs - 24 hr Temp Pulse Resp BP Pulse Ox 08/28/23 15:23 97.3 F 100 H 17 129/69 95 08/28/23 14:46 98 08/28/23 13:02 114 H 20 94 L 08/28/23 12:47 109 H 16 96 08/28/23 12:40 111 H 24 97 08/28/23 12:30 117 H 24 99 08/28/23 12:21 114 H 16 98 08/28/23 11:15 101.4 F 108 H 18 133/88 98 08/28/23 11:14 22 98 General Appearance: no apparent distress, alert Neurologic Exam: alert, oriented x 3, cooperative, normal mood/affect, nml cerebellar function, nml station & gait, sensation nml, No motor deficits Eye Exam: PERRL/EOMI, eyes nml inspection Ears, Nose, Throat Exam: normal ENT inspection, TMs normal, pharynx normal, moist mucous membranes Neck Exam: normal inspection, non-tender, supple, full range of motion Respiratory Exam: normal breath sounds, lungs clear, crackles/rales, No respiratory distress Cardiovascular Exam: regular rate/rhythm, normal heart sounds, normal peripheral pulses Gastrointestinal/Abdomen Exam: soft, normal bowel sounds, No tenderness, No mass Back Exam: normal inspection, normal range of motion, No CVA tenderness, No vertebral tenderness Extremity Exam: normal inspection, normal range of motion, pelvis stable Skin Exam: normal color, warm, dry, No rash Lymphatic Exam: No adenopathy Results - Labs Lab/Micro Results: Lab Results-Last 24 Hours 08/28/23 08/28/23 08/28/23 Range/Units 11:08 11:08 11:08 WBC (3.98-10.04) x10^3/uL RBC (3.93-5.22) x10^6/uL Hgb (11.2-15.7) g/dL Hct (34.1-44.9) % MCV (79.4-94.8) fL MCH (25.6-32.2) pg MCHC (32.2-35.5) g/dL RDW (11.7-14.4) % Plt Count (182-369) x10^3/uL MPV (9.4-12.3) fL Gran % (34.0-71.1) % Immature Gran % (Auto) (0.001-0.429) % Nucleat RBC Rel Count (0.00-0.2) % Eos # (Auto) (0.04-0.36) x10^3/uL Immature Gran # (Auto) (0.001-0.031) x10^3u/L Absolute Lymphs (auto) (1.18-3.74) x10^3/uL Absolute Monos (auto) (0.24-0.86) x10^3/uL Absolute Nucleated RBC (0.00-0.012) x10^3u/L Lymphocytes % (19.3-51.7) % Monocytes % (4.7-12.5) % Eosinophils % (0.7-5.8) % Basophils % (0.1-1.2) % Absolute Granulocytes (1.56-6.13) x10^3/uL Basophils # (0.01-0.08) x10^3/uL D-Dimer 0.83 H* (0.0-0.50) mg/L pO2/FiO2 Ratio % VBG pH (7.32-7.42) VBG pCO2 at Pat Temp (42-55) mm/Hg VBG pO2 at Pat Temp (25-40) mm/Hg VBG HCO3 (22-28) meq/L VBG O2 Sat (Mckenzie) (95-100) VBG Base Excess (-2.0-2.0) VBG Hemoglobin VBG Carboxyhemoglobin (0.0-6.9) % T HGB POC Potassium (3.5-5.1) Sodium 140 (135-145) mmol/L Potassium 3.9 (3.5-5.1) mmol/L Chloride 104 (98-107) mmol/L Carbon Dioxide 22 (22-30) mmol/L Anion Gap 17.5 H (5-15) MEQ/L BUN 12 (7-17) mg/dL Creatinine 0.90 (0.52-1.04) mg/dL Estimated GFR 91.6 ML/MIN Glucose 97 (74-106) mg/dL Lactic Acid (0.4-2.0) Calcium 9.7 (8.4-10.2) mg/dL Magnesium 2.1 (1.6-2.3) mg/dL Total Bilirubin 0.70 (0.2-1.3) mg/dL AST 28 (14-36) U/L ALT 20 (0-35) U/L Alkaline Phosphatase 66 (38-126) U/L Serum Total Protein 8.2 (6.3-8.2) g/dL Albumin 4.6 (3.5-5.0) g/dL Serum HCG, Qual NEGATIVE (NEGATIVE) Urine Color (Yellow) Urine Appearance (Clear) Urine pH (4.6-8.0) Ur Specific [place] (1.005-1.030) Urine Protein (Negative) Urine Glucose (UA) (Negative) mg/dL Urine Ketones (Negative) Urine Blood (Negative) Urine Nitrite (Negative) Urine Bilirubin (Negative) Urine Urobilinogen (0.2) mg/dL Ur Leukocyte Esterase (Negative) U Hyaline Cast (Auto) (0-2) /LPF Urine Microscopic RBC (0-5) /HPF Urine Microscopic WBC (0-5) /HPF Ur Epithelial Cells (None Seen) /HPF Urine Bacteria (None Seen) /HPF Urine Culture Reflexed (NO) Influenza Type A Ag (NEGATIVE) Influenza Type B Ag (NEGATIVE) RSV (PCR) (NEGATIVE) SARS-CoV-2 (PCR) (NEGATIVE) 08/28/23 08/28/23 08/28/23 Range/Units 11:29 11:45 12:35 WBC 7.4 (3.98-10.04) x10^3/uL RBC 4.64 (3.93-5.22) x10^6/uL Hgb 14.1 (11.2-15.7) g/dL Hct 42.0 (34.1-44.9) % MCV 90.5 (79.4-94.8) fL MCH 30.4 (25.6-32.2) pg MCHC 33.6 (32.2-35.5) g/dL RDW 12.6 (11.7-14.4) % Plt Count 224 (182-369) x10^3/uL MPV 10.0 (9.4-12.3) fL Gran % 69.5 (34.0-71.1) % Immature Gran % (Auto) 0.3 (0.001-0.429) % Nucleat RBC Rel Count 0.0 (0.00-0.2) % Eos # (Auto) 0.11 (0.04-0.36) x10^3/uL Immature Gran # (Auto) 0.02 (0.001-0.031) x10^3u/L Absolute Lymphs (auto) 1.55 (1.18-3.74) x10^3/uL Absolute Monos (auto) 0.54 (0.24-0.86) x10^3/uL Absolute Nucleated RBC 0.00 (0.00-0.012) x10^3u/L Lymphocytes % 21.0 (19.3-51.7) % Monocytes % 7.3 (4.7-12.5) % Eosinophils % 1.5 (0.7-5.8) % Basophils % 0.4 (0.1-1.2) % Absolute Granulocytes 5.13 (1.56-6.13) x10^3/uL Basophils # 0.03 (0.01-0.08) x10^3/uL D-Dimer (0.0-0.50) mg/L pO2/FiO2 Ratio % VBG pH (7.32-7.42) VBG pCO2 at Pat Temp (42-55) mm/Hg VBG pO2 at Pat Temp (25-40) mm/Hg VBG HCO3 (22-28) meq/L VBG O2 Sat (Mckenzie) (95-100) VBG Base Excess (-2.0-2.0) VBG Hemoglobin VBG Carboxyhemoglobin (0.0-6.9) % T HGB POC Potassium (3.5-5.1) Sodium (135-145) mmol/L Potassium (3.5-5.1) mmol/L Chloride (98-107) mmol/L Carbon Dioxide (22-30) mmol/L Anion Gap (5-15) MEQ/L BUN (7-17) mg/dL Creatinine (0.52-1.04) mg/dL Estimated GFR ML/MIN Glucose (74-106) mg/dL Lactic Acid 1.8 (0.4-2.0) Calcium (8.4-10.2) mg/dL Magnesium (1.6-2.3) mg/dL Total Bilirubin (0.2-1.3) mg/dL AST (14-36) U/L ALT (0-35) U/L Alkaline Phosphatase (38-126) U/L Serum Total Protein (6.3-8.2) g/dL Albumin (3.5-5.0) g/dL Serum HCG, Qual (NEGATIVE) Urine Color (Yellow) Urine Appearance (Clear) Urine pH (4.6-8.0) Ur Specific [place] (1.005-1.030) Urine Protein (Negative) Urine Glucose (UA) (Negative) mg/dL Urine Ketones (Negative) Urine Blood (Negative) Urine Nitrite (Negative) Urine Bilirubin (Negative) Urine Urobilinogen (0.2) mg/dL Ur Leukocyte Esterase (Negative) U Hyaline Cast (Auto) (0-2) /LPF Urine Microscopic RBC (0-5) /HPF Urine Microscopic WBC (0-5) /HPF Ur Epithelial Cells (None Seen) /HPF Urine Bacteria (None Seen) /HPF Urine Culture Reflexed (NO) Influenza Type A Ag NEGATIVE (NEGATIVE) Influenza Type B Ag NEGATIVE (NEGATIVE) RSV (PCR) NEGATIVE (NEGATIVE) SARS-CoV-2 (PCR) NEGATIVE (NEGATIVE) 08/28/23 08/28/23 Range/Units 12:35 15:02 WBC (3.98-10.04) x10^3/uL RBC (3.93-5.22) x10^6/uL Hgb (11.2-15.7) g/dL Hct (34.1-44.9) % MCV (79.4-94.8) fL MCH (25.6-32.2) pg MCHC (32.2-35.5) g/dL RDW (11.7-14.4) % Plt Count (182-369) x10^3/uL MPV (9.4-12.3) fL Gran % (34.0-71.1) % Immature Gran % (Auto) (0.001-0.429) % Nucleat RBC Rel Count (0.00-0.2) % Eos # (Auto) (0.04-0.36) x10^3/uL Immature Gran # (Auto) (0.001-0.031) x10^3u/L Absolute Lymphs (auto) (1.18-3.74) x10^3/uL Absolute Monos (auto) (0.24-0.86) x10^3/uL Absolute Nucleated RBC (0.00-0.012) x10^3u/L Lymphocytes % (19.3-51.7) % Monocytes % (4.7-12.5) % Eosinophils % (0.7-5.8) % Basophils % (0.1-1.2) % Absolute Granulocytes (1.56-6.13) x10^3/uL Basophils # (0.01-0.08) x10^3/uL D-Dimer (0.0-0.50) mg/L pO2/FiO2 Ratio 21.0 % VBG pH 7.54 H (7.32-7.42) VBG pCO2 at Pat Temp 30 L (42-55) mm/Hg VBG pO2 at Pat Temp 27 (25-40) mm/Hg VBG HCO3 25.7 (22-28) meq/L VBG O2 Sat (Mckenzie) 54.3 L (95-100) VBG Base Excess 3.9 H (-2.0-2.0) VBG Hemoglobin 14.8 VBG Carboxyhemoglobin 4.3 (0.0-6.9) % T HGB POC Potassium 4.3 (3.5-5.1) Sodium (135-145) mmol/L Potassium (3.5-5.1) mmol/L Chloride (98-107) mmol/L Carbon Dioxide (22-30) mmol/L Anion Gap (5-15) MEQ/L BUN (7-17) mg/dL Creatinine (0.52-1.04) mg/dL Estimated GFR ML/MIN Glucose (74-106) mg/dL Lactic Acid (0.4-2.0) Calcium (8.4-10.2) mg/dL Magnesium (1.6-2.3) mg/dL Total Bilirubin (0.2-1.3) mg/dL AST (14-36) U/L ALT (0-35) U/L Alkaline Phosphatase (38-126) U/L Serum Total Protein (6.3-8.2) g/dL Albumin (3.5-5.0) g/dL Serum HCG, Qual (NEGATIVE) Urine Color Yellow (Yellow) Urine Appearance Clear (Clear) Urine pH 7.5 (4.6-8.0) Ur Specific [place] 1.025 (1.005-1.030) Urine Protein 30 (Negative) Urine Glucose (UA) Negative (Negative) mg/dL Urine Ketones 40 A (Negative) Urine Blood Negative (Negative) Urine Nitrite Negative (Negative) Urine Bilirubin Negative (Negative) Urine Urobilinogen 1.0 A (0.2) mg/dL Ur Leukocyte Esterase Small A (Negative) U Hyaline Cast (Auto) NONE SEEN (0-2) /LPF Urine Microscopic RBC 3-5 (0-5) /HPF Urine Microscopic WBC 6-10 A (0-5) /HPF Ur Epithelial Cells Moderate A (None Seen) /HPF Urine Bacteria None Seen (None Seen) /HPF Urine Culture Reflexed YES (NO) Influenza Type A Ag (NEGATIVE) Influenza Type B Ag (NEGATIVE) RSV (PCR) (NEGATIVE) SARS-CoV-2 (PCR) (NEGATIVE) - Radiology Impressions Radiology Exams & Impressions: Radiology Procedures Category Date Time Status CHEST WITH CONTRAST [CT] Stat Exams 08/28/23 12:27 Completed - Other Procedures and Tests Respiratory Therapy 08/28/23 15:11 Respiratory Therapy Consult ONCE Assessment/Plan (1) Sepsis Current Visit: Yes Status: Acute Assessment & Plan: - elevated HR, elevated temp, + pneumonia - lactic acid 1.8 - 1L NS bolus x2 gave in ER, will give 1 more 1L bolus for 30 ml/kg fluid boluses for IV hydration - Procal- pending - NS @ 100ml/hr (2) Pneumonia Current Visit: Yes Status: Acute Assessment & Plan: - Chest CT: IMPRESSION: 1. Limited views of the pulmonary arteries as the imaging acquisition was performed at later times, in systemic arterial time. 2. Negative study for pulmonary embolism in the above-mentioned conditions. 3. Bilateral infiltrates, mainly in the left upper lobe, and to a lesser degree in the right lower lobe. 4. Correlate clinically. Follow-up is recommended. - IV antibiotics, duonebs - Compazine for nausea - tessalon for cough - Tylenol for pain for fever - RA 95% - HR 100's - tele - BC x2 pending - Sputum culture pending - FLu/ COVID/RSV negative Code(s): J18.9 - PNEUMONIA, UNSPECIFIED ORGANISM (3) Elevated d-dimer Current Visit: Yes Status: Acute Assessment & Plan: - d-dimer 0.83 - CT negative for PE - likely 2:2 pneumonia VTE: lovenox Next of KIN: Hilario Ramirez D/C plan: tomorrow Code status: full Code(s): R79.89 - OTHER SPECIFIED ABNORMAL FINDINGS OF BLOOD CHEMISTRY Telemedicine Encounter - Telemedicine Encounter Telemedicine Encounter: "The entirety of this encounter was performed via Telemedicine" This visit was performed using real-time audio and video connection between my location and thepatients locationwith the assistance of a surrogateat the patients location. Written or verbal consent was obtained from the patient/guardian to perform this visit [facility]medicine technology. Any patient questions regarding the telemedicine interaction were answered.
[2023-08-28] MEDS: Sodium Chloride 0.9% 1000 ML 1,000 ML IV SCH (17:33)
[2023-08-28] MEDS: Tessalon Perles 100 MG PO PRN (17:41)
[2023-08-28] MEDS: DUONEB 0.5-3 MG/3 ml Neb IH SCH (19:16)
[2023-08-29 07:21] LABS: Hematocrit 36.3 % (34.1-44.9); Hemoglobin 11.7 g/dL (11.2-15.7); Mean Cell Volume 93.8 fL (79.4-94.8); Mean Corpuscular Hemoglobin 30.2 pg (25.6-32.2); Mean Corpuscular Hgb Concent. 32.2 g/dL (32.2-35.5); Mean Platelet Volume 9.9 fL (9.4-12.3); Platelet Count 214 x10^3/uL (182-369); Red Blood Count 3.87 x10^6/uL (3.93-5.22); Red Cell Distribution Width 12.9 % (11.7-14.4); White Blood Count 8.1 x10^3/uL (3.98-10.04)
--- NOTE | 2023-08-29 07:29 | PCM.DS ---
Discharge Summary Date of Admission: 08/28/23 15:08 Date of Discharge: 08/31/23 Admitting Physician: FREDDY PONCE MD Primary Care Provider: NO FAMILY DOCTOR Allergies Allergies amoxicillin Allergy (Mild, Verified 08/28/23 15:38) Swelling pt said she was told not to take anything that ends with -[facility] Summary - Hospital Course Hospital Course: 08/28/23 is a 23 year old female with no known medical hx. She states she was recenlty in [facility] and it was rather cold with temps in the 50's. She thinks this is how she got sick. She had had a fever for 3 days now and not feeling well with cough and SOB. CT shows pneumonia and she is septic with elevated HR and temp. Lactic acid WNL. She was started on IV antibiotics, breathing tr eatments, and cough medication in the ER. Will continue this plan of care. She received 2 liters of NS fluid blouses as well. She will need 1 more fluid bolus and continued IV fluids. COVID/Flu/ RSA is negative. She has 3 small children at home and would like to get home as soon as she can. She denies any further concerns at this time. 08/29/23 Pt resting in bed in bed. She states she feels much better today except for the cough and would like to go home. HR is down . Lung sounds are clear. Will d/c with antibiotics and antitussive. She denies CP, SOB, abd. pain, N/V/D. - Vitals & Intake/Output Vital Signs: Vital Signs Temperature 97.5 F 08/29/23 00:00 Pulse Rate 52 L 08/29/23 04:00 Respiratory Rate 18 08/29/23 04:00 Blood Pressure 117/66 08/29/23 00:00 O2 Sat by Pulse Oximetry 94 L 08/29/23 04:00 Intake & Output: Intake & Output 08/26/23 08/27/23 08/28/23 08/29/23 11:59 11:59 11:59 11:59 Intake Total 240 Balance 240 Weight 93.44 kg 94.1 kg - Lab Result Diagrams: 08/29/23 07:10 08/29/23 07:10 Lab Results-Last 24 Hrs: Lab Results-Last 24 Hours 08/28/23 08/28/23 08/28/23 Range/Units 11:08 11:08 11:08 WBC (3.98-10.04) x10^3/uL RBC (3.93-5.22) x10^6/uL Hgb (11.2-15.7) g/dL Hct (34.1-44.9) % MCV (79.4-94.8) fL MCH (25.6-32.2) pg MCHC (32.2-35.5) g/dL RDW (11.7-14.4) % Plt Count (182-369) x10^3/uL MPV (9.4-12.3) fL Gran % (34.0-71.1) % Immature Gran % (Auto) (0.001-0.429) % Nucleat RBC Rel Count (0.00-0.2) % Eos # (Auto) (0.04-0.36) x10^3/uL Immature Gran # (Auto) (0.001-0.031) x10^3u/L Absolute Lymphs (auto) (1.18-3.74) x10^3/uL Absolute Monos (auto) (0.24-0.86) x10^3/uL Absolute Nucleated RBC (0.00-0.012) x10^3u/L Lymphocytes % (19.3-51.7) % Monocytes % (4.7-12.5) % Eosinophils % (0.7-5.8) % Basophils % (0.1-1.2) % Absolute Granulocytes (1.56-6.13) x10^3/uL Basophils # (0.01-0.08) x10^3/uL D-Dimer 0.83 H* (0.0-0.50) mg/L pO2/FiO2 Ratio % VBG pH (7.32-7.42) VBG pCO2 at Pat Temp (42-55) mm/Hg VBG pO2 at Pat Temp (25-40) mm/Hg VBG HCO3 (22-28) meq/L VBG O2 Sat (Mckenzie) (95-100) VBG Base Excess (-2.0-2.0) VBG Hemoglobin VBG Carboxyhemoglobin (0.0-6.9) % T HGB POC Potassium (3.5-5.1) Sodium 140 (135-145) mmol/L Potassium 3.9 (3.5-5.1) mmol/L Chloride 104 (98-107) mmol/L Carbon Dioxide 22 (22-30) mmol/L Anion Gap 17.5 H (5-15) MEQ/L BUN 12 (7-17) mg/dL Creatinine 0.90 (0.52-1.04) mg/dL Estimated GFR 91.6 ML/MIN Glucose 97 (74-106) mg/dL Lactic Acid (0.4-2.0) Calcium 9.7 (8.4-10.2) mg/dL Magnesium 2.1 (1.6-2.3) mg/dL Total Bilirubin 0.70 (0.2-1.3) mg/dL AST 28 (14-36) U/L ALT 20 (0-35) U/L Alkaline Phosphatase 66 (38-126) U/L Serum Total Protein 8.2 (6.3-8.2) g/dL Albumin 4.6 (3.5-5.0) g/dL Procalcitonin (0.030-0.080) ng/mL Serum HCG, Qual NEGATIVE (NEGATIVE) Urine Color (Yellow) Urine Appearance (Clear) Urine pH (4.6-8.0) Ur Specific Gary (1.005-1.030) Urine Protein (Negative) Urine Glucose (UA) (Negative) mg/dL Urine Ketones (Negative) Urine Blood (Negative) Urine Nitrite (Negative) Urine Bilirubin (Negative) Urine Urobilinogen (0.2) mg/dL Ur Leukocyte Esterase (Negative) U Hyaline Cast (Auto) (0-2) /LPF Urine Microscopic RBC (0-5) /HPF Urine Microscopic WBC (0-5) /HPF Ur Epithelial Cells (None Seen) /HPF Urine Bacteria (None Seen) /HPF Urine Culture Reflexed (NO) Influenza Type A Ag (NEGATIVE) Influenza Type B Ag (NEGATIVE) RSV (PCR) (NEGATIVE) SARS-CoV-2 (PCR) (NEGATIVE) 08/28/23 08/28/23 08/28/23 Range/Units 11:29 11:45 12:35 WBC 7.4 (3.98-10.04) x10^3/uL RBC 4.64 (3.93-5.22) x10^6/uL Hgb 14.1 (11.2-15.7) g/dL Hct 42.0 (34.1-44.9) % MCV 90.5 (79.4-94.8) fL MCH 30.4 (25.6-32.2) pg MCHC 33.6 (32.2-35.5) g/dL RDW 12.6 (11.7-14.4) % Plt Count 224 (182-369) x10^3/uL MPV 10.0 (9.4-12.3) fL Gran % 69.5 (34.0-71.1) % Immature Gran % (Auto) 0.3 (0.001-0.429) % Nucleat RBC Rel Count 0.0 (0.00-0.2) % Eos # (Auto) 0.11 (0.04-0.36) x10^3/uL Immature Gran # (Auto) 0.02 (0.001-0.031) x10^3u/L Absolute Lymphs (auto) 1.55 (1.18-3.74) x10^3/uL Absolute Monos (auto) 0.54 (0.24-0.86) x10^3/uL Absolute Nucleated RBC 0.00 (0.00-0.012) x10^3u/L Lymphocytes % 21.0 (19.3-51.7) % Monocytes % 7.3 (4.7-12.5) % Eosinophils % 1.5 (0.7-5.8) % Basophils % 0.4 (0.1-1.2) % Absolute Granulocytes 5.13 (1.56-6.13) x10^3/uL Basophils # 0.03 (0.01-0.08) x10^3/uL D-Dimer (0.0-0.50) mg/L pO2/FiO2 Ratio % VBG pH (7.32-7.42) VBG pCO2 at Pat Temp (42-55) mm/Hg VBG pO2 at Pat Temp (25-40) mm/Hg VBG HCO3 (22-28) meq/L VBG O2 Sat (Mckenzie) (95-100) VBG Base Excess (-2.0-2.0) VBG Hemoglobin VBG Carboxyhemoglobin (0.0-6.9) % T HGB POC Potassium (3.5-5.1) Sodium (135-145) mmol/L Potassium (3.5-5.1) mmol/L Chloride (98-107) mmol/L Carbon Dioxide (22-30) mmol/L Anion Gap (5-15) MEQ/L BUN (7-17) mg/dL Creatinine (0.52-1.04) mg/dL Estimated GFR ML/MIN Glucose (74-106) mg/dL Lactic Acid 1.8 (0.4-2.0) Calcium (8.4-10.2) mg/dL Magnesium (1.6-2.3) mg/dL Total Bilirubin (0.2-1.3) mg/dL AST (14-36) U/L ALT (0-35) U/L Alkaline Phosphatase (38-126) U/L Serum Total Protein (6.3-8.2) g/dL Albumin (3.5-5.0) g/dL Procalcitonin (0.030-0.080) ng/mL Serum HCG, Qual (NEGATIVE) Urine Color (Yellow) Urine Appearance (Clear) Urine pH (4.6-8.0) Ur Specific Gary (1.005-1.030) Urine Protein (Negative) Urine Glucose (UA) (Negative) mg/dL Urine Ketones (Negative) Urine Blood (Negative) Urine Nitrite (Negative) Urine Bilirubin (Negative) Urine Urobilinogen (0.2) mg/dL Ur Leukocyte Esterase (Negative) U Hyaline Cast (Auto) (0-2) /LPF Urine Microscopic RBC (0-5) /HPF Urine Microscopic WBC (0-5) /HPF Ur Epithelial Cells (None Seen) /HPF Urine Bacteria (None Seen) /HPF Urine Culture Reflexed (NO) Influenza Type A Ag NEGATIVE (NEGATIVE) Influenza Type B Ag NEGATIVE (NEGATIVE) RSV (PCR) NEGATIVE (NEGATIVE) SARS-CoV-2 (PCR) NEGATIVE (NEGATIVE) 08/28/23 08/28/23 08/28/23 Range/Units 12:35 15:02 Unknown WBC (3.98-10.04) x10^3/uL RBC (3.93-5.22) x10^6/uL Hgb (11.2-15.7) g/dL Hct (34.1-44.9) % MCV (79.4-94.8) fL MCH (25.6-32.2) pg MCHC (32.2-35.5) g/dL RDW (11.7-14.4) % Plt Count (182-369) x10^3/uL MPV (9.4-12.3) fL Gran % (34.0-71.1) % Immature Gran % (Auto) (0.001-0.429) % Nucleat RBC Rel Count (0.00-0.2) % Eos # (Auto) (0.04-0.36) x10^3/uL Immature Gran # (Auto) (0.001-0.031) x10^3u/L Absolute Lymphs (auto) (1.18-3.74) x10^3/uL Absolute Monos (auto) (0.24-0.86) x10^3/uL Absolute Nucleated RBC (0.00-0.012) x10^3u/L Lymphocytes % (19.3-51.7) % Monocytes % (4.7-12.5) % Eosinophils % (0.7-5.8) % Basophils % (0.1-1.2) % Absolute Granulocytes (1.56-6.13) x10^3/uL Basophils # (0.01-0.08) x10^3/uL D-Dimer (0.0-0.50) mg/L pO2/FiO2 Ratio 21.0 % VBG pH 7.54 H (7.32-7.42) VBG pCO2 at Pat Temp 30 L (42-55) mm/Hg VBG pO2 at Pat Temp 27 (25-40) mm/Hg VBG HCO3 25.7 (22-28) meq/L VBG O2 Sat (Mckenzie) 54.3 L (95-100) VBG Base Excess 3.9 H (-2.0-2.0) VBG Hemoglobin 14.8 VBG Carboxyhemoglobin 4.3 (0.0-6.9) % T HGB POC Potassium 4.3 (3.5-5.1) Sodium (135-145) mmol/L Potassium (3.5-5.1) mmol/L Chloride (98-107) mmol/L Carbon Dioxide (22-30) mmol/L Anion Gap (5-15) MEQ/L BUN (7-17) mg/dL Creatinine (0.52-1.04) mg/dL Estimated GFR ML/MIN Glucose (74-106) mg/dL Lactic Acid (0.4-2.0) Calcium (8.4-10.2) mg/dL Magnesium (1.6-2.3) mg/dL Total Bilirubin (0.2-1.3) mg/dL AST (14-36) U/L ALT (0-35) U/L Alkaline Phosphatase (38-126) U/L Serum Total Protein (6.3-8.2) g/dL Albumin (3.5-5.0) g/dL Procalcitonin 0.183 H (0.030-0.080) ng/mL Serum HCG, Qual (NEGATIVE) Urine Color Yellow (Yellow) Urine Appearance Clear (Clear) Urine pH 7.5 (4.6-8.0) Ur Specific Gary 1.025 (1.005-1.030) Urine Protein 30 (Negative) Urine Glucose (UA) Negative (Negative) mg/dL Urine Ketones 40 A (Negative) Urine Blood Negative (Negative) Urine Nitrite Negative (Negative) Urine Bilirubin Negative (Negative) Urine Urobilinogen 1.0 A (0.2) mg/dL Ur Leukocyte Esterase Small A (Negative) U Hyaline Cast (Auto) NONE SEEN (0-2) /LPF Urine Microscopic RBC 3-5 (0-5) /HPF Urine Microscopic WBC 6-10 A (0-5) /HPF Ur Epithelial Cells Moderate A (None Seen) /HPF Urine Bacteria None Seen (None Seen) /HPF Urine Culture Reflexed YES (NO) Influenza Type A Ag (NEGATIVE) Influenza Type B Ag (NEGATIVE) RSV (PCR) (NEGATIVE) SARS-CoV-2 (PCR) (NEGATIVE) - Radiology Exams Ordered Rad Exams-Entire Visit: Radiology Procedures Category Date Time Status CHEST WITH CONTRAST [CT] Stat Exams 08/28/23 12:27 Completed - Procedures and Test Procedures and Tests throughout Hospitalization: Therapy Orders & Screens 08/28/23 15:11 Respiratory Therapy Consult ONCE Comment: Reason For Exam: Discharge Exam General Appearance: no apparent distress, alert Neurologic Exam: alert, oriented x 3, cooperative, normal mood/affect, nml cerebellar function, sensation nml, No motor deficits Eye Exam: PERRL, EOMI, eyes nml inspection Ears, Nose, Throat Exam: normal ENT inspection, pharynx normal, moist mucous membranes Neck Exam: normal inspection, non-tender, supple, full range of motion Respiratory Exam: normal breath sounds, lungs clear, No respiratory distress Cardiovascular Exam: regular rate/rhythm, normal heart sounds Gastrointestinal/Abdomen Exam: soft, No tenderness, No mass Pelvic Exam: deferred Rectal Exam: deferred Back Exam: normal inspection, normal range of motion, No CVA tenderness, No vertebral tenderness Extremity Exam: normal inspection, normal range of motion Skin Exam: normal color, warm, dry Final Diagnosis/Problem List - Final Discharge Diagnosis/Problem (1) Sepsis Current Visit: Yes Status: Acute (2) Pneumonia Current Visit: Yes Status: Acute Code(s): J18.9 - PNEUMONIA, UNSPECIFIED ORGANISM (3) Elevated d-dimer Current Visit: Yes Status: Acute Assessment & Plan: (1) Sepsis Current Visit: Yes Status: Acute Assessment & Plan: - elevated HR, elevated temp, + pneumonia - lactic acid 1.8 - 1L NS bolus x2 gave in ER, will give 1 more 1L bolus for 30 ml/kg fluid boluses for IV hydration - Procal- 0.183 - NS @ 100ml/hr 7/6 - HR improved (2) Pneumonia Current Visit: Yes Status: Acute Assessment & Plan: - Chest CT: IMPRESSION: 1. Limited views of the pulmonary arteries as the imaging acquisition was performed at later times, in systemic arterial time. 2. Negative study for pulmonary embolism in the above-mentioned conditions. 3. Bilateral infiltrates, mainly in the left upper lobe, and to a lesser degree in the right lower lobe. 4. Correlate clinically. Follow-up is recommended. - IV antibiotics, duonebs - Compazine for nausea - tessalon for cough - Tylenol for pain for fever - RA 95% - HR 100's - tele - BC x2 pending - Sputum culture pending - FLu/ COVID/RSV negative 7/6 - HR improved- now NSR - Lungs clear - d/c with antibiotic and antitussive Code(s): J18.9 - PNEUMONIA, UNSPECIFIED ORGANISM (3) Elevated d-dimer Current Visit: Yes Status: Acute Assessment & Plan: - d-dimer 0.83 - CT negative for PE - likely 2:2 pneumonia Code(s): R79.89 - OTHER SPECIFIED ABNORMAL FINDINGS OF BLOOD CHEMISTRY - Discharge Discharge Date: 08/29/23 (e) Disposition: Home, Self-Care Condition: Stable Prescriptions: New Benzonatate 100 mg PO TID PRN PRN 10 Days #30 cap PRN Reason: Cough Doxycycline Hyclate 100 mg [Vibramycin 100 MG] 100 mg PO BID 5 Days #10 tab Discontinued Cefdinir 300 mg PO DAILY Instructions: Pneumonia in adults, Doxycycline Follow up with: TALHA CASEY MD [ACTIVE STAFF] - Call for Appointment Forms: Discharge Instructions
[2023-08-29 07:32] VITALS: BP 113/69; TEMP 96.6
[2023-08-29 07:34] LABS: ALBUMIN 3.8 g/dL (3.5-5.0); ANION GAP 14.8 MEQ/L (5-15); BILIRUBIN,TOTAL 0.5 mg/dL (0.2-1.3); Calcium 8.6 mg/dL (8.4-10.2); Creatinine 1 0.53 mg/dL (0.52-1.04); EST GLOMERULAR FILTRATION RATE 132.4 ML/MIN; Potassium 3.8 mmol/L (3.5-5.1); Total Protein 6.7 g/dL (6.3-8.2)
[2023-08-29 08:06] VITALS: PULSE 63; RESP 16
[2023-08-29] MEDS: ROCEPHIN 1 GM / 100 ML NaCl 1 GM/100 ML IVPB IV SCH (08:37)
[2023-08-29] MEDS: ENOXAPARIN SODIUM SQ SCH (08:40)
[2023-08-29] MEDS: Zithromax 500 MG/ 250 ML NaCl Premix 500 MG/250 ML IVPB IV SCH (09:16)
[2023-08-30 23:57] VITALS: O2SAT 98
== END 2023-08-29 10:52 | disposition home or self-care (01) ==
LOC: ED 11:05 → MED SURG 15:08
PROVIDERS: ADMIT Internal Medicine; ATTEND Internal Medicine
DX: A41.9 Sepsis, unspecified organism (principal); J18.9 Pneumonia, unspecified organism; R79.89 Other specified abnormal findings of blood chemistry
CPT/HCPCS: 0241U; 36000; 36415; 71260; 80053; 81001; 82805; 83605; 83735; 84145; 84703; 85025; 85027; 85379; 87040; 87070; 87086; 94640; 94762; 96374; 96375; 99285; 93268; 96365; 96367; J0456; J0696; J2405; J2919; Q3014; A9270-GY; G0378

== ENCOUNTER 2023-09-12 19:14 | Emergency (ER) | payer OTHER, MEDICAID ==
[2023-09-12 19:28] VITALS: RESP 20; TEMP 97.6
--- NOTE | 2023-09-12 20:02 | ERPHSYRPT ---
- History of Present Illness Time Seen by Provider: 09/12/23 19:59 Historian: patient Exam Limitations: no limitations Patient Subjective Stated Complaint: pt states that she is having severe stomach pain Triage Nursing Assessment: pt ambulated into the er; pt is axo x4; pt is restless, unable to sit still, anxious, crying; c/o abd pain; pt states 8/10 pain to upper abd; pt denies diarrhea and vomiting; c/o nausea; abd soft, round; tenderness present to epigastric region; active bowel sounds in all quads; skin PDW; no respiratory distress present; vitals wnl Physician History: The patient presented with acute onset abdominal pain that started earlier in the day around 4:30 PM while she was sitting and watching TV. Initially, she thought it was gas pain or diarrhea, but she has not had diarrhea or vomiting. The last bowel movement was regular and occurred at 6:30 PM on the same day. The pain is primarily located in the upper abdomen, with occasional cramping in the lower abdomen. The patient compared the pain to contractions experienced during childbirth. No alleviating factors were identified, although she noted a slight relief when hunching over and holding her breath. The patient has no history of abdominal surgeries and denies alcohol use. She confirmed the presence of her gallbladder and appendix. She is currently on pain medication following a recent wisdom teeth extraction surgery. The patient also reported feeling nauseous. Timing/Duration: today, worse Activities at Onset: none Quality: sharpness, stabbing Abdominal Pain Onset Location: epigastric, generalized abdomen Pain Radiation: no radiation Severity of Pain-Max: severe Severity of Pain-Current: severe Modifying Factors: Worsens With: defecating, lying down, movement, palpation Associated Symptoms: loss of appetite, nausea, No diarrhea, No fever/chills, No vomiting Previous symptoms: no prior history Allergies/Adverse Reactions: amoxicillin Allergy (Mild, Verified 09/12/23 19:18) Swelling pt said she was told not to take anything that ends with -cillin Home Medications: Ibuprofen 600 mg PO Q6HPRN PRN 09/12/23 [History] Oxycodone HCl/Acetaminophen [Oxycodone-Acetaminophen 5-325] 1 each PO Q6HPRN PRN 09/12/23 [History] cephALEXin [Cephalexin] 500 mg PO Q8H 09/12/23 [History] Hx Tetanus, Diphtheria Vaccination/Date Given: No (unk) Hx Influenza Vaccination/Date Given: No Hx Pneumococcal Vaccination/Date Given: No Immunizations Up to Date: No Travel Risk - International Travel Have you traveled outside of the country in past 3 weeks: No - Emerging Infectious Disease Are you exhibiting symptoms associated with any current EIDs: Yes Symptoms: Abdominal Pain - Review of Systems All Other Systems: Reviewed and Negative - Past Medical History Pertinent Past Medical History: No Neurological History: No Pertinent History ENT History: No Pertinent History Cardiac History: No Pertinent History Respiratory History: No Pertinent History Endocrine Medical History: No Pertinent History Musculoskeletal History: No Pertinent History GI Medical History: No Pertinent History History: No Pertinent History Psycho-Social History: No Pertinent History Female Reproductive Disorders: No Pertinent History - Past Surgical History Past Surgical History: Yes Other Surgical History: wisdom teeth removal - Female History Hx Last Menstrual Period: 08/14/23 Hx Now: No - Social History Smoking Status: Never smoker Exposure to second hand smoke: No Drug Use: none Patient Lives Alone: No - Social Determinants of Health Will the patient participate in the screening: Declined to provide - Nursing Vital Signs Nursing Vital Signs: Initial Vital Signs Pulse Rate 79 09/12/23 19:20 Blood Pressure 134/94 09/12/23 19:20 O2 Sat by Pulse Oximetry 98 09/12/23 19:20 Pain Scale Pain Intensity 5 - Physical Exam General Appearance: mild distress Eye Exam: eyes nml inspection Ears, Nose, Throat Exam: normal ENT inspection Neck Exam: normal inspection, supple, full range of motion Gastrointestinal/Abdomen Exam: soft, tenderness (diffuse), guarding, No distention, No mass, No rebound Neurologic Exam: alert, oriented x 3, cooperative Skin Exam: normal color, warm, dry SpO2 Interpretation: normal SpO2: 99 O2 Delivery: Room Air - Course Nursing assessment & vital signs reviewed: Yes - CT Exams Abdomen/Pelvis CT Interpretation: Tele-radiologist Report, Other (ileus, constipation, hepato megaly 19cm) Ordered Tests: Medication Summary Discontinued Medications Generic Name Dose Route Start Last Admin Trade Name Freq PRN Reason Stop Dose Admin Droperidol 1.25 mg 09/12/23 20:02 09/12/23 20:14 Droperidol 5 Mg/2 Ml Vial IV 09/12/23 20:03 1.25 mg STAT ONE Administration Droperidol Confirm 09/12/23 20:09 Droperidol 5 Mg/2 Ml Vial Administered 09/12/23 20:10 Dose 5 mg .ROUTE .STK-MED ONE Sodium Chloride 1,000 mls @ 999 mls/hr 09/12/23 20:02 09/12/23 21:16 Sodium Chloride 0.9% 1000 Ml IV 09/12/23 21:02 Infused .Q1H1M STA Infusion Sodium Chloride Confirm 09/12/23 20:09 Sodium Chloride 0.9% 1000 Ml Administered 09/12/23 20:10 Dose 1,000 mls @ ud .ROUTE .STK-MED ONE Ceftriaxone Sodium 1 gm in 100 mls @ 200 mls/hr 09/12/23 20:32 09/12/23 21:15 Rocephin 1 Gm / 100 Ml Nacl IV 09/12/23 21:01 Infused STAT ONE Infusion Ceftriaxone Sodium Confirm 09/12/23 20:41 Rocephin 1 Gm / 100 Ml Nacl Administered 09/12/23 20:42 Dose 1 gm in 100 mls @ ud IV .STK-MED ONE Metoclopramide HCl 10 mg 09/12/23 22:09 09/12/23 22:24 Metoclopramide Hcl 10 Mg/2 Ml Vial IV 09/12/23 22:10 10 mg STAT ONE Administration Metoclopramide HCl Confirm 09/12/23 22:23 Metoclopramide Hcl 10 Mg/2 Ml Vial Administered 09/12/23 22:24 Dose 10 mg .ROUTE .STK-MED ONE Pantoprazole Sodium 40 mg 09/12/23 20:02 09/12/23 20:14 Pantoprazole 40 Mg Vial IV 09/12/23 20:03 40 mg STAT ONE Administration Pantoprazole Sodium Confirm 09/12/23 20:09 Pantoprazole 40 Mg Vial Administered 09/12/23 20:10 Dose 40 mg IV .STK-MED ONE Lab/Rad Data: Laboratory Result Diagrams 09/12/23 20:07 09/12/23 20:07 Laboratory Results 09/12/23 09/12/23 09/12/23 Range/Units 20:34 20:07 20:07 WBC (3.98-10.04) x10^3/uL RBC (3.93-5.22) x10^6/uL Hgb (11.2-15.7) g/dL Hct (34.1-44.9) % MCV (79.4-94.8) fL MCH (25.6-32.2) pg MCHC (32.2-35.5) g/dL RDW (11.7-14.4) % Plt Count (182-369) x10^3/uL MPV (9.4-12.3) fL Gran % (34.0-71.1) % Immature Gran % (Auto) (0.001-0.429) % Nucleat RBC Rel Count (0.00-0.2) % Eos # (Auto) (0.04-0.36) x10^3/uL Immature Gran # (Auto) (0.001-0.031) x10^3u/L Absolute Lymphs (auto) (1.18-3.74) x10^3/uL Absolute Monos (auto) (0.24-0.86) x10^3/uL Absolute Nucleated RBC (0.00-0.012) x10^3u/L Lymphocytes % (19.3-51.7) % Monocytes % (4.7-12.5) % Eosinophils % (0.7-5.8) % Basophils % (0.1-1.2) % Absolute Granulocytes (1.56-6.13) x10^3/uL Basophils # (0.01-0.08) x10^3/uL Sodium (135-145) mmol/L Potassium (3.5-5.1) mmol/L Chloride (98-107) mmol/L Carbon Dioxide (22-30) mmol/L Anion Gap (5-15) MEQ/L BUN (7-17) mg/dL Creatinine (0.52-1.04) mg/dL Estimated GFR ML/MIN Glucose (74-106) mg/dL Lactic Acid (0.4-2.0) Calcium (8.4-10.2) mg/dL Total Bilirubin (0.2-1.3) mg/dL AST (14-36) U/L ALT (0-35) U/L Alkaline Phosphatase (38-126) U/L Troponin I < 0.012 (0.000-0.033) ng/mL Serum Total Protein (6.3-8.2) g/dL Albumin (3.5-5.0) g/dL Lipase (23-300) U/L TSH 3rd Generation (0.470-4.680) mIU/L Serum HCG, Qual NEGATIVE (NEGATIVE) Urine Color (Yellow) Urine Appearance (Clear) Urine pH (4.6-8.0) Ur Specific Spring (1.005-1.030) Urine Protein (Negative) Urine Glucose (UA) (Negative) mg/dL Urine Ketones (Negative) Urine Blood (Negative) Urine Nitrite (Negative) Urine Bilirubin (Negative) Urine Urobilinogen (0.2) mg/dL Ur Leukocyte Esterase (Negative) U Hyaline Cast (Auto) (0-2) /LPF Urine Microscopic RBC (0-5) /HPF Urine Microscopic WBC (0-5) /HPF Ur Epithelial Cells (None Seen) /HPF Urine Bacteria (None Seen) /HPF Urine Culture Reflexed (NO) Chlamydia DNA Probe NOT DETECTED (NEGATIVE) N.gonorrhoeae DNA Probe NOT DETECTED (NEGATIVE) 09/12/23 09/12/23 09/12/23 Range/Units 20:07 20:07 20:07 WBC 11.6 H (3.98-10.04) x10^3/uL RBC 4.59 (3.93-5.22) x10^6/uL Hgb 14.1 (11.2-15.7) g/dL Hct 42.8 (34.1-44.9) % MCV 93.2 (79.4-94.8) fL MCH 30.7 (25.6-32.2) pg MCHC 32.9 (32.2-35.5) g/dL RDW 12.4 (11.7-14.4) % Plt Count 308 (182-369) x10^3/uL MPV 10.2 (9.4-12.3) fL Gran % 58.4 (34.0-71.1) % Immature Gran % (Auto) 0.5 H (0.001-0.429) % Nucleat RBC Rel Count 0.0 (0.00-0.2) % Eos # (Auto) 0.10 (0.04-0.36) x10^3/uL Immature Gran # (Auto) 0.06 H (0.001-0.031) x10^3u/L Absolute Lymphs (auto) 4.09 H (1.18-3.74) x10^3/uL Absolute Monos (auto) 0.51 (0.24-0.86) x10^3/uL Absolute Nucleated RBC 0.00 (0.00-0.012) x10^3u/L Lymphocytes % 35.2 (19.3-51.7) % Monocytes % 4.4 L (4.7-12.5) % Eosinophils % 0.9 (0.7-5.8) % Basophils % 0.6 (0.1-1.2) % Absolute Granulocytes 6.78 H (1.56-6.13) x10^3/uL Basophils # 0.07 (0.01-0.08) x10^3/uL Sodium 139 (135-145) mmol/L Potassium 4.0 (3.5-5.1) mmol/L Chloride 104 (98-107) mmol/L Carbon Dioxide 25 (22-30) mmol/L Anion Gap 14.5 (5-15) MEQ/L BUN 11 (7-17) mg/dL Creatinine 0.76 (0.52-1.04) mg/dL Estimated GFR 112.2 ML/MIN Glucose 103 (74-106) mg/dL Lactic Acid (0.4-2.0) Calcium 10.5 H (8.4-10.2) mg/dL Total Bilirubin 0.70 (0.2-1.3) mg/dL AST 32 (14-36) U/L ALT 40 H (0-35) U/L Alkaline Phosphatase 71 (38-126) U/L Troponin I (0.000-0.033) ng/mL Serum Total Protein 7.4 (6.3-8.2) g/dL Albumin 4.5 (3.5-5.0) g/dL Lipase 169 (23-300) U/L TSH 3rd Generation 2.753 (0.470-4.680) mIU/L Serum HCG, Qual (NEGATIVE) Urine Color (Yellow) Urine Appearance (Clear) Urine pH (4.6-8.0) Ur Specific Spring (1.005-1.030) Urine Protein (Negative) Urine Glucose (UA) (Negative) mg/dL Urine Ketones (Negative) Urine Blood (Negative) Urine Nitrite (Negative) Urine Bilirubin (Negative) Urine Urobilinogen (0.2) mg/dL Ur Leukocyte Esterase (Negative) U Hyaline Cast (Auto) (0-2) /LPF Urine Microscopic RBC (0-5) /HPF Urine Microscopic WBC (0-5) /HPF Ur Epithelial Cells (None Seen) /HPF Urine Bacteria (None Seen) /HPF Urine Culture Reflexed (NO) Chlamydia DNA Probe (NEGATIVE) N.gonorrhoeae DNA Probe (NEGATIVE) 09/12/23 09/12/23 Range/Units 20:06 20:05 WBC (3.98-10.04) x10^3/uL RBC (3.93-5.22) x10^6/uL Hgb (11.2-15.7) g/dL Hct (34.1-44.9) % MCV (79.4-94.8) fL MCH (25.6-32.2) pg MCHC (32.2-35.5) g/dL RDW (11.7-14.4) % Plt Count (182-369) x10^3/uL MPV (9.4-12.3) fL Gran % (34.0-71.1) % Immature Gran % (Auto) (0.001-0.429) % Nucleat RBC Rel Count (0.00-0.2) % Eos # (Auto) (0.04-0.36) x10^3/uL Immature Gran # (Auto) (0.001-0.031) x10^3u/L Absolute Lymphs (auto) (1.18-3.74) x10^3/uL Absolute Monos (auto) (0.24-0.86) x10^3/uL Absolute Nucleated RBC (0.00-0.012) x10^3u/L Lymphocytes % (19.3-51.7) % Monocytes % (4.7-12.5) % Eosinophils % (0.7-5.8) % Basophils % (0.1-1.2) % Absolute Granulocytes (1.56-6.13) x10^3/uL Basophils # (0.01-0.08) x10^3/uL Sodium (135-145) mmol/L Potassium (3.5-5.1) mmol/L Chloride (98-107) mmol/L Carbon Dioxide (22-30) mmol/L Anion Gap (5-15) MEQ/L BUN (7-17) mg/dL Creatinine (0.52-1.04) mg/dL Estimated GFR ML/MIN Glucose (74-106) mg/dL Lactic Acid 2.7 H (0.4-2.0) Calcium (8.4-10.2) mg/dL Total Bilirubin (0.2-1.3) mg/dL AST (14-36) U/L ALT (0-35) U/L Alkaline Phosphatase (38-126) U/L Troponin I (0.000-0.033) ng/mL Serum Total Protein (6.3-8.2) g/dL Albumin (3.5-5.0) g/dL Lipase (23-300) U/L TSH 3rd Generation (0.470-4.680) mIU/L Serum HCG, Qual (NEGATIVE) Urine Color Yellow (Yellow) Urine Appearance Clear (Clear) Urine pH 7.0 (4.6-8.0) Ur Specific Spring 1.010 (1.005-1.030) Urine Protein Negative (Negative) Urine Glucose (UA) Negative (Negative) mg/dL Urine Ketones Negative (Negative) Urine Blood Negative (Negative) Urine Nitrite Negative (Negative) Urine Bilirubin Negative (Negative) Urine Urobilinogen 1.0 A (0.2) mg/dL Ur Leukocyte Esterase Trace A (Negative) U Hyaline Cast (Auto) NONE SEEN (0-2) /LPF Urine Microscopic RBC 0-2 (0-5) /HPF Urine Microscopic WBC 0-2 (0-5) /HPF Ur Epithelial Cells None Seen (None Seen) /HPF Urine Bacteria None Seen (None Seen) /HPF Urine Culture Reflexed NO (NO) Chlamydia DNA Probe (NEGATIVE) N.gonorrhoeae DNA Probe (NEGATIVE) - Progress Progress: improved Progress Note: While waiting on results from workup patient was able to have 2 BM which provided significant relief of her abdominal pain. Labs unremarkable. CT showed ileus with large stool burden. With patient having a BM and pain improvement she would like to go home w/ meds and return if needed. prescribe Miralax, Docusate, senna, keflex, flagyl and reglan. Counseled pt/family regarding: lab results, diagnosis, need for follow-up, rad results Medical Desision Making - Diagnostic Testing Diagnostic test were ordered, analyzed, and reviewed by me: Yes Radiological Interpretation: Interpreted by me, Reviewed by me, Teleradiologist Report - Risk of complications The pt has a mod risk of morbidity or mortality based on: Need for prescription drug management - Departure Departure Disposition: Home Clinical Impression: Abdominal pain, Nausea, Constipation, Ileus, Hepatomegaly Condition: Good Critical Care Time: No Referrals: TALHA CASEY MD [Primary Care Provider] - Follow up/PCP as directed Instructions: Constipation in adults, Fecal Impaction Prescriptions: Sennosides/Docusate Sodium [Docusate Sodium-Sennosides Tab] 1 each PO BID PRN 14 Days #28 tablet PRN Reason: Constipation Metronidazole 500 mg [Flagyl 500 MG] 500 mg PO TID 7 Days #21 tablet Cephalexin Mh 500 mg [Keflex 500 mg] 500 mg PO TID 7 Days #21 cap Metoclopramide HCl 10 mg PO TID PRN 7 Days #21 tablet PRN Reason: Constipation Polyethylene Glycol 3350 [Miralax] 17 gm PO DAILY PRN 14 Days #14 pkt PRN Reason: Constipation
[2023-09-12 20:09] LABS: Absolute Neutrophil Ct (ANC) 6.78 x10^3/uL (1.56-6.13); BASOPHIL % 0.6 % (0.1-1.2); Basophil (Absolute #) 0.07 x10^3/uL (0.01-0.08); Eosinophil % 0.9 % (0.7-5.8); Hematocrit 42.8 % (34.1-44.9); Hemoglobin 14.1 g/dL (11.2-15.7); IMMATURE GRAN # 0.06 x10^3u/L (0.001-0.031); IMMATURE GRAN % 0.5 % (0.001-0.429); Lymphocyte (Absolute #) 4.09 x10^3/uL (1.18-3.74); Lymphocytes % 35.2 % (19.3-51.7); Mean Cell Volume 93.2 fL (79.4-94.8); Mean Corpuscular Hemoglobin 30.7 pg (25.6-32.2); Mean Corpuscular Hgb Concent. 32.9 g/dL (32.2-35.5); Mean Platelet Volume 10.2 fL (9.4-12.3); Monocyte (Absolute #) 0.51 x10^3/uL (0.24-0.86); Monocytes % 4.4 % (4.7-12.5); Neutrophil % 58.4 % (34.0-71.1); Platelet Count 308 x10^3/uL (182-369); Red Blood Count 4.59 x10^6/uL (3.93-5.22); Red Cell Distribution Width 12.4 % (11.7-14.4); White Blood Count 11.6 x10^3/uL (3.98-10.04)
[2023-09-12] MEDS ORDERED: PROTONIX 40 MG IV IV ONE (20:09)
[2023-09-12] MEDS ORDERED: Sodium Chloride 0.9% 1000 ML 1,000 ML ONE (20:09)
[2023-09-12 20:13] LABS: Appearance Clear (Clear); Bacteria None Seen /HPF (None Seen); Bilirubin Negative (Negative); Blood Negative (Negative); Epithelial Cells None Seen /HPF (None Seen); Glucose, Urine Negative (Negative); Hyaline Casts NONE SEEN /LPF (0-2); Ketones Negative (Negative); Leukocyte Esterase Trace (Negative); Nitrite Negative (Negative); Protein,Urine Dip Negative (Negative); RBC 0-2 /HPF (0-5); WBC 0-2 /HPF (0-5)
[2023-09-12] MEDS: PROTONIX 40 MG IV IV ONE (20:14)
[2023-09-12] MEDS: Sodium Chloride 0.9% 1000 ML 1,000 ML IV STA (20:14)
[2023-09-12 20:17] LABS: ALBUMIN 4.5 g/dL (3.5-5.0); ANION GAP 14.5 MEQ/L (5-15); BILIRUBIN,TOTAL 0.7 mg/dL (0.2-1.3); Calcium 10.5 mg/dL (8.4-10.2); Creatinine 1 0.76 mg/dL (0.52-1.04); EST GLOMERULAR FILTRATION RATE 112.2 ML/MIN; Total Protein 7.4 g/dL (6.3-8.2)
[2023-09-12 20:24] LABS: ADD URINE CULTURE? NO (NO)
[2023-09-12 20:31] LABS: HCG SERUM TEST NEGATIVE (NEGATIVE)
[2023-09-12] MEDS ORDERED: ROCEPHIN 1 GM / 100 ML NaCl 1 GM/100 ML IVPB IV ONE (20:41)
[2023-09-12] MEDS: ROCEPHIN 1 GM / 100 ML NaCl 1 GM/100 ML IVPB IV ONE (20:42)
[2023-09-12 22:05] LABS: CHLAMYDIA DNA NOT DETECTED (NEGATIVE); GC DNA Probe NOT DETECTED (NEGATIVE)
--- NOTE | 2023-09-12 22:10 | XRAY ---
CLINICAL HISTORY: abd pain COMPARISON: None. TECHNIQUE: CT scan of the abdomen and pelvis was performed with IV contrast. Coronal and sagittal reconstructive images were also obtained. One of the following dose reduction techniques was utilized for this exam: automated exposure control, adjustment of the mA and/or kV according to patient size, use of iterative reconstruction. FINDINGS: Scan through the lower chest reveals unremarkable lung bases and heart. Abdomen: Hepatomegaly, measuring 19 cm at the largest craniocaudal span in the right lobe. No focal or diffuse parenchymal abnormality. The portal vein, intrahepatic biliary radicals and the bile ducts are normal. The gallbladder is distended and shows no definite stones. There is no evidence of wall thickening/ pericholecystic collection. The pancreas appears preserved. No peripancreatic fat stranding, pancreatic pseudocyst or peripancreatic fluid collection. Spleen normal in size, no mass seen. Both adrenal glands are unremarkable. The kidneys are normal in size and shape. No calculi or hydronephrosis. The stomach and the visualized small bowel loops are unremarkable. There is no evidence of significant mesenteric or retroperitoneal lymph node enlargement. No free fluid. The appendix is not visualized however no fat stranding or collection is seen in the right iliac fossa. Pelvis: Dilated colon, with fecal content and some air-fluid levels. It measures up to 5.1 cm in the ascending colon, 4.0 cm in the transverse colon, 5.0 cm in the descending colon, and 5.0 cm in the sigmoid colon. These are suggestive findings of ileus. No evident free fluid or air. Engorgement of vasa recta also noted. The urinary bladder is unremarkable. Reproductive organs unremarkable. The pelvic vasculature is unremarkable. No evidence of pelvic lymphadenopathy. No definite bony abnormalities could be depicted. IMPRESSION: 1. Dilated colon, with fecal content and some air-fluid levels, measuring up to 5.1 cm. These are suggestive findings of ileus. Correlate clinically. 2. Hepatomegaly, measuring [address] [facility] ER was called at [phone] at 9:04 PM [employer], 09/12/2023 Dr Perkins was informed about the significant medical findings. Electronically Signed by: Benny Santiago MD. (09/12/2023 22:06:37 EDT)
[2023-09-12] MEDS ORDERED: Reglan 10 MG/2 ML ONE (22:23)
[2023-09-12] MEDS: Reglan 10 MG/2 ML IV ONE (22:24)
[2023-09-12 22:38] VITALS: BP 128/82; PULSE 82
[2023-09-14 00:29] VITALS: O2SAT 99
== END 2023-09-12 22:39 | disposition home or self-care (01) ==
LOC: ED 19:14
DX: K59.00 Constipation, unspecified (principal); R10.84 Generalized abdominal pain; R11.0 Nausea; K56.7 Ileus, unspecified; R16.0 Hepatomegaly, not elsewhere classified; Z79.891 Long term (current) use of opiate analgesic; Z79.899 Other long term (current) drug therapy
CPT/HCPCS: 36000; 36415; 74177; 80053; 81001; 83605; 83690; 84443; 84484; 84703; 85025; 87491; 87591; 96360; 96374; 99284; J0696

== ENCOUNTER 2023-09-14 21:31 | Emergency (ER) | payer OTHER, MEDICAID ==
--- NOTE | 2023-09-14 21:52 | ERPHSYRPT ---
- History of Present Illness Time Seen by Provider: 09/14/23 21:40 Source: patient, family Exam Limitations: no limitations Patient Subjective Stated Complaint: increased swelling to neck, wisdom teeth removal on Thursday Triage Nursing Assessment: Pt ambulated into ER without diff, spouse at bedside. Pt had all 4 wisdom teeth removed on Thursday, [address] Hughes in [place]. This evening around 8:30 pm, pt noticed her neck was swelling worse, feels like her mouth/jaw is locked and c/o posterior neck pain. Pt was some greenish/purple old bruising to left side of face from wisdom teeth removal. Lungs clear, heart tones reg. Physician History: This is a 23-year-old white female patient who 5 days ago underwent wisdom tooth extraction and was placed on antibiotics as well as oral Reglan. She was seen in our emergency department and there was a concern of possible gastrointestinal infection therefore she was started also on Flagyl antibiotics. This evening, she felt as though her jaw was locking and she was beginning to have pain in her neck. She denies chest pain. She denies shortness of breath. Her room air oxygen saturation level is 98%. She is in no respiratory distress but does jodie ear to be uncomfortable because of the pain that she is experiencing in her jaws Timing/Duration: gradual onset Severity: moderate ENT Location: facial, dental Prearrival Treatment: prescription meds Modifying Factors: Improves With: other (Doing) Associated Symptoms: facial pain/swelling, jaw pain (Post wisdom teeth extraction), neck pain (Post wisdom teeth extraction), other (Since her dental procedure, patient has not been eating or drinking well.) Allergies/Adverse Reactions: amoxicillin Allergy (Mild, Verified 09/14/23 21:48) Swelling pt said she was told not to take anything that ends with -cillin Home Medications: Ibuprofen 600 mg PO Q6HPRN PRN 09/12/23 [History] Oxycodone HCl/Acetaminophen [Oxycodone-Acetaminophen 5-325] 1 each PO Q6HPRN PRN 09/12/23 [History] cephALEXin [Cephalexin] 500 mg PO Q8H 09/12/23 [History] Metronidazole 500 mg [Flagyl 500 MG] 500 mg PO TID 09/14/23 [History] Hx Tetanus, Diphtheria Vaccination/Date Given: Yes Hx Influenza Vaccination/Date Given: No Hx Pneumococcal Vaccination/Date Given: No Travel Risk - International Travel Have you traveled outside of the country in past 3 weeks: No - Emerging Infectious Disease Are you exhibiting symptoms associated with any current EIDs: Yes Symptoms: Shortness of Breath - Review of Systems Constitutional: No Symptoms Eyes: No Symptoms Ears, Nose, & Throat: Mouth Pain Respiratory: No Symptoms Cardiac: No Symptoms Abdominal/Gastrointestinal: No Symptoms Genitourinary Symptoms: No Symptoms Musculoskeletal: No Symptoms Skin: Other (Ecchymosis left lateral mandible) Neurological: No Symptoms Psychological: No Symptoms Endocrine: No Symptoms Hematologic/Lymphatic: No Symptoms Immunological/Allergic: No Symptoms All Other Systems: Reviewed and Negative - Past Medical History Pertinent Past Medical History: No Neurological History: No Pertinent History ENT History: No Pertinent History Cardiac History: No Pertinent History Respiratory History: No Pertinent History Endocrine Medical History: No Pertinent History Musculoskeletal History: No Pertinent History GI Medical History: No Pertinent History History: No Pertinent History Psycho-Social History: No Pertinent History Female Reproductive Disorders: No Pertinent History - Past Surgical History Past Surgical History: Yes Other Surgical History: wisdom teeth removal - Female History Hx Last Menstrual Period: 08/14/23 Hx Now: No - Social History Smoking Status: Never smoker Exposure to second hand smoke: No Drug Use: none Patient Lives Alone: No - Social Determinants of Health Will the patient participate in the screening: Yes Do you worry about a steady place to live?: No Do you have any problems with any of the following?: No known problems In the past 12 months,have you had to go without utilities?: No Transportation Issues: No Has anyone in your support network made you feel unsafe?: No Have you or anyone in your house had to go without enough: No - Nursing Vital Signs Nursing Vital Signs: Initial Vital Signs Pulse Rate 110 H 09/14/23 21:34 Respiratory Rate 18 09/14/23 21:34 Blood Pressure 114/96 09/14/23 21:34 O2 Sat by Pulse Oximetry 98 09/14/23 21:34 Pain Scale Pain Intensity 0 - Physical Exam General Appearance: mild distress, alert, anxiety Eye Exam: bilateral eye: normal inspection, PERRL, EOMI Ear Exam: bilateral ear: auricle normal, canal normal, TM normal Nasal Exam: normal inspection Throat Exam: dental tenderness, moist mucus membranes, trismus, No voice changes Neck Exam: normal inspection, non-tender, supple, full range of motion, trachea midline Cardiovascular/Respiratory Exam: chest non-tender, normal breath sounds, regular rate/rhythm, heart sounds normal, no respiratory distress, No subcutaneous emphysema, No wheezing Abdominal Exam: non-tender Neurologic Exam: alert, oriented x 3, cooperative, cloth stock sorter II-XII nml as tested, nml cerebellar function, nml station & gait, sensation nml Skin Exam: ecchymosis (As described above) SpO2 Interpretation: normal SpO2: 98 O2 Delivery: Room Air - Course Nursing assessment & vital signs reviewed: Yes Ordered Tests: Active Orders 24 hr Category Date Time Status IV Insertion STAT Care 09/14/23 21:44 Active FACIAL BONES WO CONTRAST [CT] Stat Exams 09/14/23 21:43 Completed NECK WO CONTRAST [CT] Stat Exams 09/14/23 21:42 Completed CBC W DIFF Stat Lab 09/14/23 21:30 Completed CMP Stat Lab 09/14/23 21:30 Completed Medication Summary Discontinued Medications Generic Name Dose Route Start Last Admin Trade Name Manuelq PRN Reason Stop Dose Admin Diphenhydramine HCl 50 mg 09/14/23 21:45 09/14/23 22:01 Diphenhydramine Hcl 50 Mg/Ml Vial IV 09/14/23 21:46 50 mg STAT ONE Administration Diphenhydramine HCl Confirm 09/14/23 21:56 Diphenhydramine Hcl 50 Mg/Ml Vial Administered 09/14/23 21:57 Dose 50 mg .ROUTE .STK-MED ONE Sodium Chloride 1,000 mls @ 999 mls/hr 09/14/23 21:44 09/14/23 22:01 Sodium Chloride 0.9% 1000 Ml IV 09/14/23 22:44 999 mls/hr .Q1H1M STA Administration Sodium Chloride Confirm 09/14/23 21:56 Sodium Chloride 0.9% 1000 Ml Administered 09/14/23 21:57 Dose 1,000 mls @ ud .ROUTE .STK-MED ONE Lorazepam 0.5 mg 09/14/23 21:45 09/14/23 22:04 Lorazepam 2 Mg/1 Ml 2 Mg Vial IV 09/14/23 21:46 0.5 mg STAT ONE Administration Lorazepam Confirm 09/14/23 21:56 Lorazepam 2 Mg/1 Ml 2 Mg Vial Administered 09/14/23 21:57 Dose 2 mg .ROUTE .STK-MED ONE Ondansetron HCl 4 mg 09/14/23 21:44 09/14/23 22:04 Ondansetron Hcl 4 Mg/2 Ml Vial IV 09/14/23 21:45 4 mg STAT ONE Administration Ondansetron HCl Confirm 09/14/23 21:56 Ondansetron Hcl 4 Mg/2 Ml Vial Administered 09/14/23 21:57 Dose 4 mg .ROUTE .STK-MED ONE Lab/Rad Data: Laboratory Result Diagrams 09/14/23 21:30 09/14/23 21:30 Laboratory Results 09/14/23 09/14/23 Range/Units 21:30 21:30 WBC 12.2 H (3.98-10.04) x10^3/uL RBC 4.67 (3.93-5.22) x10^6/uL Hgb 14.3 (11.2-15.7) g/dL Hct 42.4 (34.1-44.9) % MCV 90.8 (79.4-94.8) fL MCH 30.6 (25.6-32.2) pg MCHC 33.7 (32.2-35.5) g/dL RDW 12.7 (11.7-14.4) % Plt Count 319 (182-369) x10^3/uL MPV 10.2 (9.4-12.3) fL Gran % 66.7 (34.0-71.1) % Immature Gran % (Auto) 0.4 (0.001-0.429) % Nucleat RBC Rel Count 0.0 (0.00-0.2) % Eos # (Auto) 0.20 (0.04-0.36) x10^3/uL Immature Gran # (Auto) 0.05 H (0.001-0.031) x10^3u/L Absolute Lymphs (auto) 3.06 (1.18-3.74) x10^3/uL Absolute Monos (auto) 0.71 (0.24-0.86) x10^3/uL Absolute Nucleated RBC 0.00 (0.00-0.012) x10^3u/L Lymphocytes % 25.0 (19.3-51.7) % Monocytes % 5.8 (4.7-12.5) % Eosinophils % 1.6 (0.7-5.8) % Basophils % 0.5 (0.1-1.2) % Absolute Granulocytes 8.16 H (1.56-6.13) x10^3/uL Basophils # 0.06 (0.01-0.08) x10^3/uL Sodium 139 (135-145) mmol/L Potassium 3.7 (3.5-5.1) mmol/L Chloride 102 (98-107) mmol/L Carbon Dioxide 26 (22-30) mmol/L Anion Gap 15.5 H (5-15) MEQ/L BUN 8 (7-17) mg/dL Creatinine 0.81 (0.52-1.04) mg/dL Estimated GFR 103.9 ML/MIN Glucose 101 (74-106) mg/dL Calcium 10.1 (8.4-10.2) mg/dL Total Bilirubin 0.80 (0.2-1.3) mg/dL AST 40 H (14-36) U/L ALT 48 H (0-35) U/L Alkaline Phosphatase 67 (38-126) U/L Serum Total Protein 8.2 (6.3-8.2) g/dL Albumin 4.9 (3.5-5.0) g/dL - Progress Progress: improved, pain not gone completely, re-examined Progress Note: 09/14/23 21:52 My medical decision making and the assignment of moderate complexity to this patient's medical issue today is based on review of the patient's past medical history, review of patient's medication list, review patient drug allergy list, history present illness and physical findings on examination. The workup in this patient includes placement of intravenous line, infusion of normal saline solution, CT scan of the face and neck soft tissues, CBC, CMP and infusion of Benadryl and Ativan intravenously. 09/14/23 21:53 Differential diagnosis includes but is not limited to extraparametal side effects of Reglan, postoperative swelling (wisdom teeth extraction). 09/14/23 22:49 I interpreted the patient's laboratory data results. Based on the laboratory data results, patient has no acute, emergent medical issue. Patient states she is feeling much better after receiving the Benadryl and Ativan medication. I think her symptoms that came on acutely are secondary to the use of Reglan over the last few days. We are awaiting the CT scan results. 09/14/23 23:[address] scan of the face without contrast was interpreted by the radiologist and I reviewed the impression. The impression states minimal bilateral maxillary sinusitis. Post bilateral lower one half molar tooth extraction with adjacent soft tissue thickening. CT scan of the neck without contrast shows no abnormality in the neck. No obvious large fluid collection or hematoma. Counseled pt/family regarding: lab results, diagnosis, need for follow-up, rad results Medical Desision Making - Independent Historian Additional History obtained from: Spouse - Diagnostic Testing Diagnostic test were ordered, analyzed, and reviewed by me: Yes Radiological Interpretation: Reviewed by me, Teleradiologist Report - Risk of complications Low Risk: Low risk of morbidity from additional dx testing or treatment - Departure Departure Disposition: Home Clinical Impression: Post-operative complication, Medication side effect Condition: Stable Critical Care Time: No Referrals: TALHA CASEY MD [Primary Care Provider] - Follow up/PCP as directed Additional Instructions: Drink plenty of clear liquids and full liquids. Advance your diet per year oral surgeons recommendations. Stop your Reglan (metoclopramide). Do not take this medication. The symptoms you are experiencing are likely due to this medication. Resume your antibiotics as prescribed. Call your oral surgeon and your primary care provider tomorrow, 09/14/2022 to make arrangement for follow-up appointment for further evaluation management.
[2023-09-14] MEDS ORDERED: Zofran 4 MG/2 ML VIAL ONE (21:56)
[2023-09-14] MEDS ORDERED: BENADRYL 50 MG/ML ONE (21:56)
[2023-09-14] MEDS ORDERED: Ativan 2 MG/1 ML VIAL ONE (21:56)
[2023-09-14] MEDS ORDERED: Sodium Chloride 0.9% 1000 ML 1,000 ML ONE (21:56)
[2023-09-14 21:59] LABS: Absolute Neutrophil Ct (ANC) 8.16 x10^3/uL (1.56-6.13); BASOPHIL % 0.5 % (0.1-1.2); Basophil (Absolute #) 0.06 x10^3/uL (0.01-0.08); Eosinophil % 1.6 % (0.7-5.8); Hematocrit 42.4 % (34.1-44.9); Hemoglobin 14.3 g/dL (11.2-15.7); IMMATURE GRAN # 0.05 x10^3u/L (0.001-0.031); IMMATURE GRAN % 0.4 % (0.001-0.429); Lymphocyte (Absolute #) 3.06 x10^3/uL (1.18-3.74); Mean Cell Volume 90.8 fL (79.4-94.8); Mean Corpuscular Hemoglobin 30.6 pg (25.6-32.2); Mean Corpuscular Hgb Concent. 33.7 g/dL (32.2-35.5); Mean Platelet Volume 10.2 fL (9.4-12.3); Monocyte (Absolute #) 0.71 x10^3/uL (0.24-0.86); Monocytes % 5.8 % (4.7-12.5); Neutrophil % 66.7 % (34.0-71.1); Platelet Count 319 x10^3/uL (182-369); Red Blood Count 4.67 x10^6/uL (3.93-5.22); Red Cell Distribution Width 12.7 % (11.7-14.4); White Blood Count 12.2 x10^3/uL (3.98-10.04)
[2023-09-14] MEDS: Sodium Chloride 0.9% 1000 ML 1,000 ML IV STA (22:01)
[2023-09-14] MEDS: BENADRYL 50 MG/ML IV ONE (22:01)
[2023-09-14] MEDS: Zofran 4 MG/2 ML VIAL IV ONE (22:04)
[2023-09-14] MEDS: Ativan 2 MG/1 ML VIAL IV ONE (22:04)
[2023-09-14 22:12] LABS: ALBUMIN 4.9 g/dL (3.5-5.0); ANION GAP 15.5 MEQ/L (5-15); BILIRUBIN,TOTAL 0.8 mg/dL (0.2-1.3); Calcium 10.1 mg/dL (8.4-10.2); Creatinine 1 0.81 mg/dL (0.52-1.04); EST GLOMERULAR FILTRATION RATE 103.9 ML/MIN; Potassium 3.7 mmol/L (3.5-5.1); Total Protein 8.2 g/dL (6.3-8.2)
--- NOTE | 2023-09-14 23:30 | XRAY ---
CLINICAL HISTORY: Increase mandibular pain/swelling COMPARISON: none TECHNIQUE: Computed tomography of the orbits/face was performed without intravenous contrast. Contiguous axial images were obtained. Reformatted coronal and sagittal images were also reviewed. CT scan was performed according to ALARA (as low as reasonable achievable). ? FINDINGS: Minimal bilateral maxillary sinusitis. Post bilateral lower third molar tooth extraction with adjacent soft tissue thickening is seen. No acute facial fractures. The rest of paranasal sinuses and mastoid air cells are clear. The globes, optic nerves, extraocular muscles and retro-orbital fat are grossly unremarkable. Reformatted imaging demonstrates intact roof and floor of the orbits. Included portions of the mandible are intact. The included intracranial substances and airway are unremarkable. IMPRESSION: Minimal bilateral maxillary sinusitis. Post bilateral lower third molar tooth extraction with adjacent soft tissue thickening is seen.- post-contrast workup suggested. Electronically Signed by: Calvin Peck MD. (09/14/2023 23:26:19 EDT)
--- NOTE | 2023-09-14 23:41 | XRAY ---
CLINICAL HISTORY: Neck swelling COMPARISON: - TECHNIQUE: Computed tomography of the Neck was performed without intravenous contrast. Contiguous axial images were obtained. Reformatted coronal and sagittal images were also reviewed. CT scan was performed according to ALARA (as low as reasonably achievable). ? FINDINGS: Visualized neck spaces appear normal. Nasopharynx and oropharynx appear normal. The true and false vocal cords appear normal. The sub-mandibular and parotid glands appear normal. Thyroid gland appears normal. Few reactive cervical nodes are seen. Major neck vessels appear normal. Visualized bones appear normal. No fracture in the visualized bones or cartilages IMPRESSION: 1. No abnormality seen in the neck in the present study. 2. Post bilateral lower third molar tooth extraction with adjacent soft tissue thickening is seen. No obvious large collection/hematoma. Electronically Signed by: Calvin Peck MD. (09/14/2023 23:36:50 EDT)
[2023-09-14 23:48] VITALS: PULSE 74; RESP 17
[2023-09-14 23:49] VITALS: BP 114/72
[2023-09-14 23:52] VITALS: O2SAT 98
== END 2023-09-14 23:59 | disposition home or self-care (01) ==
LOC: ED 21:31
DX: T81.9XXA Unspecified complication of procedure, initial encounter (principal); T88.7XXA Unspecified adverse effect of drug or medicament, initial encounter; T45.0X5A Adverse effect of antiallergic and antiemetic drugs, initial encounter; M54.2 Cervicalgia; R68.84 Jaw pain; Z79.891 Long term (current) use of opiate analgesic; Z79.899 Other long term (current) drug therapy
CPT/HCPCS: 36000; 36415; 70486; 70490; 80053; 85025; 96374; 96375; 99284; J1200; J2060; J2405

== ENCOUNTER 2024-05-01 10:45 | Emergency (ER) | payer OTHER, MEDICAID ==
[2024-05-01 11:07] VITALS: TEMP 97
--- NOTE | 2024-05-01 11:26 | ERPHSYRPT ---
- History of Present Illness Source: patient Exam Limitations: no limitations Patient Subjective Stated Complaint: Foot injury right Triage Nursing Assessment: Patient ambulated back to ED with slow and steady gait and transferred self to bed. Patient A+O X 3. Patient's skin pink, warm and dry. Patient states yesterday she tripped and fell down 4 steps while cleaning her house. Patient complains of right lower leg/foot/ankle pain 8/10 worse when bearing weight. Right ankle/foot noted to be swollen. Physician History: Patient fell and on some steps and she has pain in her foot and ankle. It is more located in the foot. She thinks it was an inversion type of injury. She has pain in the lateral aspect of the foot and the lateral aspect of the ankle. No obvious deformities noted. She did not hit her head or lose consciousness she has no other trauma. There is no obvious deformity seen. Allergies/Adverse Reactions: metoclopramide [From Reglan] Allergy (Severe, Verified 05/01/24 11:00) locked jaw amoxicillin Allergy (Mild, Verified 05/01/24 11:00) Swelling pt said she was told not to take anything that ends with -cillin Home Medications: Ibuprofen 600 mg PO Q6HPRN PRN 09/12/23 [History] Oxycodone HCl/Acetaminophen [Oxycodone-Acetaminophen 5-325] 1 each PO Q6HPRN PRN 09/12/23 [History] cephALEXin [Cephalexin] 500 mg PO Q8H 09/12/23 [History] Metronidazole 500 mg [Flagyl 500 MG] 500 mg PO TID 09/14/23 [History] Hx Tetanus, Diphtheria Vaccination/Date Given: Yes Hx Influenza Vaccination/Date Given: No Hx Pneumococcal Vaccination/Date Given: No Immunizations Up to Date: Yes Travel Risk - International Travel Have you traveled outside of the country in past 3 weeks: No - Emerging Infectious Disease Are you exhibiting symptoms associated with any current EIDs: No Symptoms: Shortness of Breath - Review of Systems Constitutional: No Symptoms Eyes: No Symptoms Skin: No Symptoms Neurological: No Symptoms - Past Medical History Pertinent Past Medical History: Yes Neurological History: No Pertinent History ENT History: No Pertinent History Cardiac History: No Pertinent History Respiratory History: No Pertinent History Endocrine Medical History: No Pertinent History Musculoskeletal History: No Pertinent History GI Medical History: No Pertinent History History: No Pertinent History Psycho-Social History: Anxiety, Depression Female Reproductive Disorders: No Pertinent History - Past Surgical History Past Surgical History: Yes Other Surgical History: wisdom teeth removal - Female History Hx Last Menstrual Period: 3 weeks ago Hx Now: No - Social History Smoking Status: Never smoker Exposure to second hand smoke: No Drug Use: none - Social Determinants of Health Will the patient participate in the screening: Yes Do you worry about a steady place to live?: No Do you have any problems with any of the following?: No known problems In the past 12 months,have you had to go without utilities?: No Transportation Issues: No Has anyone in your support network made you feel unsafe?: No Have you or anyone in your house had to go w/o enough food: No - Nursing Vital Signs Nursing Vital Signs: Initial Vital Signs Temperature 97.0 F 05/01/24 11:00 Pulse Rate 108 H 05/01/24 11:00 Respiratory Rate 20 05/01/24 11:00 Blood Pressure 133/81 05/01/24 11:00 O2 Sat by Pulse Oximetry 99 05/01/24 11:00 Pain Scale Pain Intensity 8 - Physical Exam General Appearance: no apparent distress Legs Exam: bilateral leg: non-tender, normal inspection, normal range of motion, no evidence of injury Knees Exam: bilateral knee: non-tender, normal inspection, normal range of motion, no evidence of injury Ankle Exam: right ankle: ecchymosis, pain, soft tissue tenderness (There is a hematoma along the proximal dorsum of the right foot.), left ankle: non-tender, normal inspection, normal range of motion, no evidence of injury Foot Exam: right foot: pain, soft tissue tenderness (Hematoma on the right proximal dorsum of the foot) Neuro/Tendon Exam: normal sensation, normal motor functions, normal tendon functions Mental Status Exam: alert, oriented x 3 Skin Exam: normal color, warm SpO2: 99 Ordered Tests: Active Orders 24 hr Category Date Time Status ANKLE (3 VIEWS) Stat Exams 05/01/24 10:59 Ordered FOOT (MINIMUM 3 VIEWS) Stat Exams 05/01/24 10:59 Ordered LOWER LEG Stat Exams 05/01/24 11:07 Ordered - Progress Progress: unchanged Progress Note: The x-rays of the foot ankle and tib-fib were done. I reviewed them all in dependently. I did not see any acute fractures. I think the patient just has a soft tissue injury. I went to give her Faisal wrap and ice pack and crutches if she needs it. 05/01/24 11:34 - Departure Departure Disposition: Home Clinical Impression: Foot sprain Qualifiers: Encounter type: initial encounter Laterality: right Qualified Code(s): S93.601A - Unspecified sprain of right foot, initial encounter Condition: Stable Critical Care Time: No Referrals: TALHA CASEY MD [Primary Care Provider] - Follow up/PCP as directed Instructions: Foot Sprain (DC)
[2024-05-01 11:48] VITALS: BP 118/69; PULSE 97; RESP 18; O2SAT 97
--- NOTE | 2024-05-01 19:58 | XRAY ---
Indication: Pain following fall. Comparison: None 3 view right ankle demonstrates tiny posterior heel spur. No other bony, articular, or soft tissue abnormalities.
--- NOTE | 2024-05-01 19:58 | XRAY ---
Indication: Pain following fall. Comparison: None 2 view right lower leg demonstrates tiny posterior heel spur. No other bony, articular, or soft tissue abnormalities.
--- NOTE | 2024-05-01 19:58 | XRAY ---
Indication: Pain following fall. Comparison: None 3 nonweightbearing views right foot demonstrates tiny posterior heel spur. No other bony, articular, or soft tissue abnormalities.
== END 2024-05-01 11:49 | disposition home or self-care (01) ==
LOC: ED 10:45
DX: S93.601A Unspecified sprain of right foot, initial encounter (principal); W10.9XXA Fall (on) (from) unspecified stairs and steps, initial encounter; Y93.E9 Activity, other interior property and clothing maintenance; M25.571 Pain in right ankle and joints of right foot; Z79.899 Other long term (current) drug therapy
CPT/HCPCS: 73590; 73610; 73630; 99283; 99284